=== PATIENT | male | born 1960 | race Caucasian/White ===

== ENCOUNTER 2022-11-22 23:21 | Emergency (ER) | payer MEDICARE ==
[~2022-11-22] VITALS: Ht 180.3 cm; Wt 93.0 kg
[~2022-11-22 23:21] MED LIST: CHLO25 PO; FLUO20 PO; LISHYD2025 PO; LORA.5 PO; OXYACE5T PO; [UNRECOGNIZED DRUG - REMARK]
[2022-11-23 00:49] LABS: Albumin, Blood 3.5 g/dL (3.4-5.0); Albumin/Globulin Ratio 0.7 (0.8-1.8); Bilirubin, Total 1.9 mg/dL (0.1-1.0); Bun/Creatinine Ratio 22.7 (12.0-20.0); Calcium, Blood 8.4 mg/dL (8.5-10.1); Creatinine, Blood 0.57 mg/dL (0.60-1.20); Potassium, Blood 4.6 mmol/L (3.5-5.5); Total Protein, Blood 8.5 g/dL (6.4-8.2)
[2022-11-23 01:16] LABS: BASOPHILS ABSOLUTE AUTO 0.02 K/mm3 (0.00-0.23); BASOPHILS PERCENT AUTO 0 % (0-2); EOSINOPHILS ABSOLUTE AUTO 0.01 K/mm3 (0.00-0.68); EOSINOPHILS PERCENT AUTO 0 % (0-6); Hematocrit 42.2 % (37.0-53.0); IMMATURE GRAN ABSOLUTE AUTO 0.07 K/mm3 (0.00-0.10); IMMATURE GRAN PERCENT AUTO 0 % (0-1); LYMPHOCYTES ABSOLUTE AUTO 2.49 K/mm3 (0.84-5.20); LYMPHOCYTES PERCENT AUTO 16 % (21-46); MONOCYTES ABSOLUTE AUTO 1.49 K/mm3 (0.16-1.47); MONOCYTES PERCENT AUTO 10 % (4-13); Mean Corpuscular HGB 32.4 pg (26.0-34.0); Mean Corpuscular HGB Conc 35.5 g/dL (31.5-36.5); Mean Corpuscular Volume 91 fL (80-100); Mean Platelet Volume 9.5 fL (9.1-12.4); NEUTROPHILS ABSOLUTE AUTO 11.67 K/mm3 (1.96-9.15); NEUTROPHILS PERCENT AUTO 74 % (41-73); Platelet Count 310 K/mm3 (150-400); RDW Coefficient Variation 12.6 % (11.7-14.2); RDW Standard Deviation 41.8 fL (35.1-46.3); Red Blood Cell Count 4.63 M/mm3 (4.30-5.90); White Blood Cell Count 15.75 K/mm3 (4.00-11.30)
== END 2022-11-23 03:59 | disposition home or self-care (01) ==
LOC: ER 23:21
PROVIDERS: Student in an Organized Health Care Education/Training Program
DX: J32.3 Chronic sphenoidal sinusitis (principal); Z79.899 Other long term (current) drug therapy; I10 Essential (primary) hypertension
CPT/HCPCS: 36415; 70450; 80053; 85025; 96374; 96375; 99284; A9270; J0780; J1200; J1885; J7030

== ENCOUNTER 2023-04-29 13:31 | Emergency (ER) | payer MEDICARE ==
[~2023-04-29] VITALS: Ht 177.8 cm; Wt 83.9 kg
[~2023-04-29 13:31] MED LIST changes: +ATOR40TA PO; +CEPH500 PO; +CLOP75 PO; +PERISHIELD OIN452 GM TOP; +Prinivil10 MG PO
[2023-04-29 13:35] VITALS: BP 141/98
[2023-04-29] MEDS ORDERED: LISI5 PO (16:07)
== END 2023-04-29 16:18 | disposition home or self-care (01) ==
LOC: ER 13:31
DX: S40.022A Contusion of left upper arm, initial encounter (principal); W19.XXXA Unspecified fall, initial encounter; I10 Essential (primary) hypertension; I69.954 Hemiplegia and hemiparesis following unspecified cerebrovascular disease affecting left non-dominant side
CPT/HCPCS: 73090; 99283-25

== ENCOUNTER 2023-05-15 14:04 | Inpatient (IN) | payer MEDICARE ==
[~2023-05-15] VITALS: Ht 175.3 cm; Wt 84.6 kg
[~2023-05-15 14:04] MED LIST changes: +LISI5 PO
[2023-05-15 15:45] LABS: BASOPHILS ABSOLUTE AUTO 0.01 K/mm3 (0.00-0.23); BASOPHILS PERCENT AUTO 0 % (0-2); EOSINOPHILS ABSOLUTE AUTO 0.08 K/mm3 (0.00-0.68); EOSINOPHILS PERCENT AUTO 1 % (0-6); Hematocrit 44.8 % (37.0-53.0); Hemoglobin 15.2 g/dL (13.5-17.5); IMMATURE GRAN ABSOLUTE AUTO 0.01 K/mm3 (0.00-0.10); IMMATURE GRAN PERCENT AUTO 0 % (0-1); LYMPHOCYTES ABSOLUTE AUTO 1.69 K/mm3 (0.84-5.20); LYMPHOCYTES PERCENT AUTO 26 % (21-46); MONOCYTES PERCENT AUTO 12 % (4-13); Mean Corpuscular HGB 35.3 pg (26.0-34.0); Mean Corpuscular HGB Conc 33.9 g/dL (31.5-36.5); Mean Corpuscular Volume 104 fL (80-100); Mean Platelet Volume 10.8 fL (9.1-12.4); NEUTROPHILS ABSOLUTE AUTO 3.84 K/mm3 (1.96-9.15); NEUTROPHILS PERCENT AUTO 60 % (41-73); Platelet Count 255 K/mm3 (150-400); RDW Coefficient Variation 11.7 % (11.7-14.2); RDW Standard Deviation 45.7 fL (35.1-46.3); Red Blood Cell Count 4.31 M/mm3 (4.30-5.90); White Blood Cell Count 6.43 K/mm3 (4.00-11.30)
[2023-05-15 15:57] LABS: Albumin, Blood 3.2 g/dL (3.4-5.0); Albumin/Globulin Ratio 0.7 (0.8-1.8); Bilirubin, Total 0.5 mg/dL (0.1-1.0); Bun/Creatinine Ratio 11.4 (12.0-20.0); Calcium, Blood 8.9 mg/dL (8.5-10.1); Creatinine, Blood 0.7 mg/dL (0.60-1.20); Globulin, Blood 4.3 g/dL (2.2-4.0); Potassium, Blood 2.9 mmol/L (3.5-5.5); Total Protein, Blood 7.5 g/dL (6.4-8.2)
[2023-05-16] VITALS (12 sets, daily range): BP systolic 146–171; BP diastolic 104–119
--- NOTE | 2023-05-16 05:15 | NUR ---
ARRIVAL TO PCU 10 / SHIFT SUMMARY PT ARRIVED TO PCU AT APPROXIMATELY 0350. PT SLID SELF OVER FROM ER GURNEY TO HOSPITAL BED. PT A&Ox4, CALLS AND COMMUNICATES NEEDS APPROPRIATELY. AT TIMES PT GETS FRSUTRATED WITH STAFF AND YELLS OUT BUT IS EASILY COMFORTED. BP STABLE, SINUS 70's, DENIES CP/PRESSURE. SpO2> 92% RA, DENIES SOB. INCONTINENT/CONTINENT OF URINE, ATTENDS IN PLACE, URINAL AT BEDSIDE. ORIENTED TO CALL LIGHT/UNIT. SEIZURE PADS ON SIDERAILS. CIWA SCORE OF 6 UPON ARRIVAL. BED IN LOWEST POSITION, BED ALARM ON. WILL REPORT TO ONCOMING RN.
[2023-05-16 09:54] LABS: Albumin, Blood 3.2 g/dL (3.4-5.0); Albumin/Globulin Ratio 0.7 (0.8-1.8); Bilirubin, Total 0.6 mg/dL (0.1-1.0); Bun/Creatinine Ratio 5.3 (12.0-20.0); Calcium, Blood 8.7 mg/dL (8.5-10.1); Creatinine, Blood 0.57 mg/dL (0.60-1.20); Globulin, Blood 4.9 g/dL (2.2-4.0); Potassium, Blood 3.8 mmol/L (3.5-5.5); Total Protein, Blood 8.1 g/dL (6.4-8.2)
--- NOTE | 2023-05-16 10:20 | NUR ---
Pt had been on the bedside commode and PCT Calmar said that the pt was an easy stand and transfer [place] [facility] had been left on the BSC with the call light in his shirt pocket, with intructions to call before he got up. A loud noise was heard just out side the room, and the patient was found sitting on the floor, next to the closed bathroom door, with his legs underneath him. He denies any pain. He was alert, oriented to person, place, following directions and was in his normal conversation level, per PCT. Gait belt was then put on and the pt was assisted to stand up and sit on the bedside commode. The bed was then rolled closer to the BS and pt was able to stand and pivot to the bed. He was able to stand independently to have the PCT put on a pair of pull ups. He then sat on the side of the bed and vital signs were taken. Speech therapist arrived to work with the patient. Pt again denies any pain. Pt then asked for something for a headache, and pointed to the hairline on the top of his forehead when asked where his pain was. Scalp noted to be intact, without redness, bruising, bleeding nor swelling. Pt states he has had this headache "for a while" but then told me that it started today. Clinical coordinator, primary RN and the nursing supervisor filling and packing were notified. Primary RN Guera will call and notify the provider.
--- NOTE | 2023-05-16 10:41 | NUR ---
CARE ASSUMPTION This RN assumed care at 0700. blood pressure hypertensive, spo2 >95% on ra, tele sinus tach at 114. patient is alert and oriented x4. ciwa 8, this am. perrla. patient reports no pain, chest pain/pressure, or shortness of breath. patient over stimulates ability. bed alarm is on while patinet is in bed. see shift assessment for further detials. patient had an unwitnessed fall from bedside comode, this rn was informed of it from suly diana. see her note. this rn called md myers to inform her of the fall and that patient is asking how he can be discharged and wants his "freedom and mobility back". this rn explained why the patient is here and the importance of having someone here to assist him. plan of care is up to date. call light within reach and bed alarm is on.
[2023-05-16 16:28] LABS: Magnesium, Blood 1.9 mg/dL (1.6-2.4)
--- NOTE | 2023-05-16 17:44 | NUR ---
shift summary patient ciwa 8-13. patient is drowsy, and arousable to painful stimuli. patient had multiple episodes of emesis this afternoon. patient received zofran iv. md Vásquez aware and into see patient this afternoon. patient blood pressure has been hypertensive, medications per emar. plan of care is up to date. no acute changes. see pervious notes. call light within reach and bed in lowest position with alarm on and tab alarm on.
--- NOTE | 2023-05-16 19:30 | NUR ---
ASSESSMENT/ASSUMED CARE PT SLEEPING, OPENS EYES TO VERBAL STIMULI. FOLLOWING SOME INSTRUCTIONS. BACK TO SLEEP QUICKLY WHEN UNDISTURBED. LUNGS CLEAR ON ROOMAIR. RESP EVEN AND NONLABORED. HEART RATE REGULAR SINUS RHYTHM IN THE 90'S. BP ELEVATED WITH MED WITH HYDRALAZINE 10 MG IV. NO EDEMA. BT+ ABD SOFT AND NONTENDER. PT HAS HAD NAUSEA AND VOMITING TODAY, NONE AT THIS TIME. IV LEFT AC WITH 1/2 NS AT 100 ML/HR. PT MOVING SELF IN BED. BED AND TAB ALARM ON. CIWA 7. 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
--- NOTE | 2023-05-16 20:10 | NUR ---
PT HAVING NAUSEA MED WITH ZOFRAN.
--- NOTE | 2023-05-16 21:10 | NUR ---
CIWA UP TO 18. PT HAVING NAUSEA AND VOMITING. MED WITH ATIVAN 2 MG
[2023-05-17] VITALS (8 sets, daily range): BP systolic 113–162; BP diastolic 80–121
[2023-05-17 04:00] LABS: BASOPHILS ABSOLUTE AUTO 0.01 K/mm3 (0.00-0.23); BASOPHILS PERCENT AUTO 0 % (0-2); EOSINOPHILS ABSOLUTE AUTO 0.03 K/mm3 (0.00-0.68); EOSINOPHILS PERCENT AUTO 0 % (0-6); Hematocrit 42.4 % (37.0-53.0); Hemoglobin 14.4 g/dL (13.5-17.5); IMMATURE GRAN ABSOLUTE AUTO 0.01 K/mm3 (0.00-0.10); IMMATURE GRAN PERCENT AUTO 0 % (0-1); LYMPHOCYTES ABSOLUTE AUTO 1.46 K/mm3 (0.84-5.20); LYMPHOCYTES PERCENT AUTO 21 % (21-46); MONOCYTES ABSOLUTE AUTO 0.59 K/mm3 (0.16-1.47); MONOCYTES PERCENT AUTO 9 % (4-13); Mean Corpuscular HGB 34.5 pg (26.0-34.0); Mean Corpuscular Volume 102 fL (80-100); Mean Platelet Volume 10.3 fL (9.1-12.4); NEUTROPHILS ABSOLUTE AUTO 4.72 K/mm3 (1.96-9.15); NEUTROPHILS PERCENT AUTO 69 % (41-73); Platelet Count 248 K/mm3 (150-400); RDW Coefficient Variation 11.8 % (11.7-14.2); RDW Standard Deviation 44.4 fL (35.1-46.3); Red Blood Cell Count 4.17 M/mm3 (4.30-5.90); White Blood Cell Count 6.82 K/mm3 (4.00-11.30)
[2023-05-17 04:22] LABS: Magnesium, Blood 1.6 mg/dL (1.6-2.4)
[2023-05-17 04:23] LABS: Anion Gap 7 mmol/L (6-16); Blood Urea Nitrogen 4 mg/dL (8-24); Bun/Creatinine Ratio 7.1 (12.0-20.0); CO2, Blood 24 mmol/L (21-32); Calcium, Blood 8.4 mg/dL (8.5-10.1); Chloride, Blood 110 mmol/L (98-108); Creatinine, Blood 0.56 mg/dL (0.60-1.20); Glomerular Filtration Rate 113 (60-); Glucose, Blood 100 mg/dL (70-99); Phosphorus, Blood 2.4 mg/dL (2.5-4.9); Potassium, Blood 3.4 mmol/L (3.5-5.5); Sodium, Blood 141 mmol/L (136-145)
--- NOTE | 2023-05-17 05:55 | NUR ---
SHIFT SUMMARY PT SLEPT MOST OF NIGHT. CIWA 8-18, MED WITH LIBRIUM AND ATIVAN PRN. HTN, PT GIVEN HYDRALAZINE ONCE DURING THE NIGHT WITH GOOD RESULTS. BEDALARM ON. FREQUENT REORIENTATION. REPORT TO ON COMING NURSE
--- NOTE | 2023-05-17 07:00 | NUR ---
ASSUMPTION OF CARE PT IS AWAKE, PARTICIPATES IN CONVERSATION. WHEN ASKING ORIENTATION QUESTIONS HE IMMEDIATELY RESPONDS WITH "April,, DARLIN IS PRESIDENT". CIWA 11. PT STS HE WAS LIVING AT [facility] BUT GOT "EVICTED" AND PEOPLE WERE "STEALING" FROM HIM. STS MOTHER LIVES IN [place] AND SON LIVES IN [place]. PT ON CONTINUOUS TELEMETRY. BED IN LOW POSITION, CALL LIGHT WITHIN REACH. BED ALARM AND TAB ALARM ON.
--- NOTE | 2023-05-17 08:03 | NUR ---
UPDATE PT ATTEMPTING TO GET OUT OF BED X4. BED AND TAB ALARMS ALERT STAFF. PT BECOMING MORE ANXIOUS AND AGITATED DESPITE CONVERSATION AND REORIENTATION. HE WANTS HIS CELL PHONE CHARGED AND STS "THE PLUG INS ARE ON THE FLOOR". PT REORIENTED THAT HE IS IN THE HOSPITAL. PT REDIRECTABLE BUT NEEDS CLOSE MONITORING. PT ASSISTED TO RECLINER. CIWA 15, MEDICATED PER EMAR. 1:[address] NOW [address] PL[address].
--- NOTE | 2023-05-17 14:09 | NUR ---
UPDATE CIWA SCORES 11-17. PT MOOD IS LABILE. HE BECOMES ANXIOUS AND EXPRESSES WANTING TO LEAVE. HE CURSES AT STAFF AND REQUESTS HIS MOBILITY SCOOTER SO HE CAN LEAVE THE HOSPITAL. OTHER TIMES HE EXPRESSES GRATITUDE FOR THE CARE HE HAS BEEN GIVEN. PT REORIENTED THROUGHOUT THE SHIFT. HE HAS IMPULSIVE BEHAVIOR INCLUDING ATTEMPTING TO STAND INDEPENDENTLY. PT HAS AN UNSTEADY GAIT DUE TO L SIDE DEFICITS FROM PREVIOUS CVA. PT INTERMITTENTLY REDIRECTABLE BUT REQUIRES CLINICAL SITTER DUE TO IMPULSIVE BEHAVIOR.
--- NOTE | 2023-05-17 17:02 | NUR ---
SHERMAN/DEBIT CARD PT ASKING ABOUT MONEY AND DEBIT CARD. PT HAS 2 TWENTY DOLLAR BILLS AND 4 ONE DOLLAR BILLS AND A DEBIT CARD. PT WANTS TO KEEP IT IN HIS POSESSION. PLACED BACK IN PT BELONGINGS BAG.
--- NOTE | 2023-05-17 17:42 | NUR ---
SHIFT SUMMARY PT ANSWERS BASIC ORIENTATION QUESTIONS CORRECTLY BUT HAS EPISODES OF CONFUSION. MOOD IS LABILE. PT REQUIRES FREQUENT REORIENTATION AND BEHAVIOR IS IMPULSIVE. CIWA SCORES 11-17 AND MEDICATED PER EMAR. PT HAS HAD MULTIPLE INCONTINENT VOIDS. SOFT DIET PER SPEECH THERAPY. TOLERATING MEALS AND FLUIDS WELL. 1:[address]
[2023-05-18] VITALS (14 sets, daily range): BP systolic 105–168; BP diastolic 76–107
[2023-05-18 03:52] LABS: Bun/Creatinine Ratio 14.1 (12.0-20.0); Calcium, Blood 8.5 mg/dL (8.5-10.1); Creatinine, Blood 0.71 mg/dL (0.60-1.20); Magnesium, Blood 1.8 mg/dL (1.6-2.4); Potassium, Blood 3.7 mmol/L (3.5-5.5)
--- NOTE | 2023-05-18 06:29 | NUR ---
PATIENT INTERMITTENTLY CONFUSED. SOMETIMES FORGETS SITUATION, PLACE, AND TIME. OTHER TIMES APPEARS ORIENTED TO THESE THINGS. CIWA SCORES RANGING FROM 2-10. LABILE EMOTIONS, QUICK TO BECOME VERBALLY AGGRESSIVE AND THREATENING TO STAFF. SITTER AT BEDSIDE. SR WITH STABLE BP. ROOM AIR. TOLERATING DIET WITH NO N/V. CONDOM CATHETER IN PLACE D/T INCONTINENCE.
--- NOTE | 2023-05-18 07:12 | NUR ---
ASSUME CARE: I have assumed care of this patient.
--- NOTE | 2023-05-18 18:30 | NUR ---
SHIFT SUMMARY: Pt received one dose of librium and 2mg of ativan for his withdrawal symptoms today. He requested pain medications for his chronic left sided pain for which he was given 5mg oxycodone with good effect. Orientation improving throughout the day. Pt cooperative, though he is paranoid with labile affect. Condom cath in place with one unmeasured void today. Good PO intake. Pt repositions self in bed with minimal assistance. technical services rep consult placed as pt is requesting assistance with finding housing.
--- NOTE | 2023-05-18 23:42 | NUR ---
RECEIVED PT FROM ICU, VERY ANXIOUS C/O CONFUSION OTHERWISE VERY PLEASENT. SITTER TO WATCH PT. ATIVAN AND LIBRIUM GIVEN PER REQUEST OF PT AND BECAUSE CWA IS 9-10. LEFT SIDE FLACID BED ALARM ON.
--- NOTE | 2023-05-19 05:40 | NUR ---
SHIFT SUMMARY REPORT RECEIVED VERIFIED PT ANXIOUS SO I OFFERED MEDICATION, PT ACCEPTED AND WAS THANKFUL. PT SLEPT MOST OF THE NIGHT HAD SITTER AT BEDSIDE AND IT WAS DECIDED PT DIDNT NEED A SITTER AND HAS BEEN COOPERATIVE SO FAR. CONDOM CATH WAS APPLIED DUE TO PT DIFFICULTY USING BOTTLE WITH ONE HAND SINCE LEFT HAND IS FLACCID. PT MEDICATED FOR CIWA 8 AND PAIN TO LEFT ARM.
[2023-05-19 06:29] VITALS: BP 165/113
--- NOTE | 2023-05-19 06:39 | NUR ---
PT BP RUNS HIGH HX OF HTN, PRN HYDRALAZINE GIVEN.
[2023-05-19 08:06] VITALS: BP 117/84
[2023-05-19 16:10] VITALS: BP 147/96
--- NOTE | 2023-05-19 16:34 | NUR ---
SHIFT SUMMARY: PATIENT A&OX3. EPISODE OF CONFUSION T/O SHIFT BUT REDIRECTABLE. ANXIOUS AT TIMES. CIWA SCORE OF 7 THIS SHIFT. RECEIVED PRN LIBRIUM AND ATIVAN PER EMAR. L SIDED FLACCID. DENIES CP/PRESSURE, SOB, N/V. REPORTS HEADACHE 7-04/25, MEDICATED c PRN PAIN MEDS PER EMAR c GOOD EFFECT. PATIENT IS INCONTINENCE OF BLADDER, BRYANT CARE AND ATTENDS CHANGED T/O SHIFT. PATIENT IS EATING AND DRINKING WELL WITHOUT ANY ISSUES OR PROBLEMS SWALLOWING. BP HAS IMPROVED. RECEIVED IV THIAMINE AND FOLIC ACID. POWERGLIDE TO KAYY AND PIV TO LAC SALINE LOCKED. BED ALARM ON FOR SAFETY. CALL LIGHT IN REACH.
[2023-05-19 20:10] VITALS: BP 159/99
[2023-05-20 04:57] VITALS: BP 159/112
--- NOTE | 2023-05-20 05:54 | NUR ---
ATTEMPTED TO GET OOB TWICE BUT REDIRECTABLE, HAS HAD UNSTEADY GAIT AND RECENT FALLS. CONTINENT/INCONTINENT OF BLADDER, NO BM THIS SHIFT. LOW CIWA SCORES BETWEEN 7-8. IMPROVING ORIENTATION BUT STILL HAS MOMENTS OF CONFUSION. HYPERTENSIVE BUT OTHERWISE VSS ON RA. FIRE SAFETY REVIEWED.
[2023-05-20 07:21] VITALS: BP 160/111
[2023-05-20 15:56] VITALS: BP 195/138
--- NOTE | 2023-05-20 16:17 | NUR ---
SHIFT SUMMARY PATIENT IS ALERT AND ORIENTED X3. PATIENT HAS HAD NO ACUTE EVENTS THIS SHIFT. PATIENT HAS HAD ANXIETY THIS SHIFT X2 AND MEDICATED PER EMAR. PATIENT HAS HAD NO COMPLAINTS OF PAIN, NAUSEA, SOB OR VOMITTING THIS SHIFT. PATIENT IS A 2 PERSON ASSIST DUE TO LEFT SIDED WEAKNESS. PATIENT HAS NEEDED ASSISTENCE WITH URINAL THIS SHIFT. PATIENTS BP HAS BEEN ELEVATED DUE TO INCREASED ANXIETY AND AGITATION WITH BEING IN HOSPITAL. BED IN LOCKED AND LOWEST POSITION. CALL LIGHT IN PLACE. WILL MONITOR UNTIL SHIFT CHANGE.
[2023-05-20 19:14] VITALS: BP 153/100
[2023-05-21 04:25] VITALS: BP 168/118
--- NOTE | 2023-05-21 06:31 | NUR ---
PT REPORTS HIGH ANXIETY AND REQUESTS ATIVAN MULTIPLE TIMES THROUGH SHIFT. PT IS INTERMITTENTLY CONFUSED (EXAMPLE: [place] RESPONDS WELL TO REDIRECTION. REPORTS CHRONIC LUE PAIN, STATES OXYCODONE 5 MG IS EFFECTIVE. VSS ON RA, TOLERATES PILLS WHOLE WITH WATER. PT REQUESTED CONDOM CATHETER, PER REPORT CONDOM CATHETER DOES NOT STAY IN PLACE, WILL CONTINUE TO ASSESS. DID NOT GET OOB, REQUIRES MIN ASSIST TO REPOSITION IN BED. FIRE SAFETY REVIEWED.
[2023-05-21 06:49] LABS: Bun/Creatinine Ratio 10.3 (12.0-20.0); Calcium, Blood 8.4 mg/dL (8.5-10.1); Creatinine, Blood 0.78 mg/dL (0.60-1.20); Magnesium, Blood 1.9 mg/dL (1.6-2.4); Potassium, Blood 3.6 mmol/L (3.5-5.5)
[2023-05-21 07:54] VITALS: BP 156/122
--- NOTE | 2023-05-21 10:23 | NUR ---
ASSUMED CARE OF PT, DR RODRIGUEZ AT BEDSIDE. PT ALERT AND COMPLAINS OF HEADACHE. A&OX3, CIWA SCORE OF 7. PT STATES ANXIETY, NO NAUSEA, A HEADACHE, MINOR TREMORS FELT, NO VISUAL OR AUDITORY HALLUCINATIONS, MINOR ITCHINESS. PT RESTING IN BED. BED LOCKED AND IN LOW POSITION, BED ALARM ENABLED, AND CALL LIGHT WITHIN REACH.
--- NOTE | 2023-05-21 14:05 | NUR ---
PT RESTING IN BED SLEEPING. WILL ASSESS CIWA ONCE PT WAKES UP.
[2023-05-21 15:26] VITALS: BP 142/88
--- NOTE | 2023-05-21 17:56 | NUR ---
PT STATES "I JUST WANT TO ". FURTHER INVESTIGATED TO ASSESS FOR SUICIDE RISK, NO PLANS OF SELF HARM. PT STATES "I DO NOT WANT TO HURT MYSELF OR ANYONE ELSE." THERAPEUTIC COMMUNICATION UTILIZED, PT VERBALIZES LESS ANXIETY. WILL CONTINUE TO MONITOR.
--- NOTE | 2023-05-21 17:59 | NUR ---
SHIFT SUMMARY PT A&OX3, UNAWARE OF CURRENT DATE BUT CAN RECALL CURRENT PRESIDENT. NO ACUTE EVENTS DURING THE SHIFT. PT STATED "I JUST WANT TO " DURING A CONVERSATION WITH ME AND GIORGI NEVAREZ. SUICIDE RISK ASSESSED, NO RISK FOUND. PT MOOD RETURNED TO CALM LATER ON DURING THE SHIFT. PT ABLE TO USE CALL LIGHT APPROPRIATELY. PT LEFT IN A POSITION OF SAFETY WITH BED LOCKED AND LOW, YELLOW GOWN IN PLACE, BED ALARM SET. BP BEGINNING TO TREND DOWN AFTER LISINOPRIL ADMINISTRATION.
[2023-05-21 19:24] VITALS: BP 104/76
[2023-05-22 04:43] VITALS: BP 125/89
--- NOTE | 2023-05-22 04:59 | NUR ---
SHIFT SUMMARY PT ALERT AND ORIENTED TO PERSON, PLACE AND SELF. PT IS ABLE TO MAKE NEEDS KNOWN AND IS COOPERATIVE WITH CARE. RESPIRATIONS HAVE BEEN EQUAL AND UNLABORED ON RA T/O SHIFT AND PERIODS OF REST. PT DENIES CHEST PAIN OR PRESSURE. PT HAS BEEN ANXIOUS WITH AGITATION THIS SHIFT; MEDICATED PER EMAR. PT HAS LEFT SIDED DEFICITS; YELLOW GOWN IS ON, BED IS IN LOWEST POSITION AND LOCKED, CALL LIGHT WITHIN REACH. NO S/S OF DISTRESS AT THIS TIME. NO ACUTE CHANGES THIS SHIFT.
[2023-05-22 07:39] VITALS: BP 147/100
--- NOTE | 2023-05-22 07:46 | NUR ---
ASSUMED CARE OF PT. PT AGITATED AND RESTLESS, TRYING TO LEAVE BED. REORIENTED PT. PT RAISED MIDDLE FINGER TOWARDS TECHNICAL SALES CONSULTANT, EDUCATED PT ON EXPECTED TREATMENT OF STAFF. USED THERAPEUTIC COMMUNICATION AND BREATHING EXERCISES TO CALM PT. PT STILL ANXIOUS, TEARY, AND RESTLESS WHEN ASSESSING CIWA SCORE. LIBRIUM INDICATED PER SCORE.
--- NOTE | 2023-05-22 14:00 | NUR ---
SPOKE TO PHYSICIAN REGARDING D/C PLAN, BEGINNING D/C PT IS SHOWING NO SIGNS OF INCREASED CONFUSION FROM BASELINE.
--- NOTE | 2023-05-22 14:11 | NUR ---
CALLED NEXT OF KIN, NO ANSWER RECEIVED. WILL MAKE ANOTHER ATTEMPT TO CONTACT FOR RIDE.
[2023-05-22 15:49] VITALS: BP 108/87
--- NOTE | 2023-05-22 18:24 | NUR ---
SHIFT SUMMARY PT A&OX3 (PERSON, PLACE, SITUATION). NO ACUTE EVENTS DURING SHIFT. PHYSICAL THERAPY IN TO SEE PT REGARDING ABILITY TO D/C. PT'S MOTHER CONTACTED REGARDING BASELINE AMBULATION AT HOME. PT'S B/P TRENDING DOWN. CIWA SCORES IMPROVING, PT EXPERIENCING ANXIETY AND AGITATION, NO OTHER SYMPTOMS REPORTED/OBSERVED DURING ASSESSMENTS. PT FORGETS LIMITATIONS REGARDING AMBULATION, ABLE TO BE REORIENTED. PT REMAINED FREE OF FALLS DURING MY SHIFT. PT CURRENTLY STABLE WITH NO SIGNS OF DISTRESS. BED ALARM ENABLED, BED LOCKED AND IN LOW POSITION.
[2023-05-22 21:05] VITALS: BP 102/69
[2023-05-23 02:54] VITALS: BP 136/99
--- NOTE | 2023-05-23 04:28 | NUR ---
SHIFT SUMMARY PT IS ALERT AND ORIENTED TO PERSON, PLACE, AND SITUATION. PT IS OF PLEASANT AFFECT, AND ABLE TO MAKE NEEDS KNOWN. PT REPORTED BEING EXCITED FOR PHYSICAL THERAPY ON 05/23/23. 2 PERSON ASSIST TO BEDSIDE COMMODE, GAIT IS WEAK; LEFT SIDE DEFICITS (HX CVA). PT RESTING MOST OF SHIFT WITH EQUAL, UNLABORED RESPIRATIONS. PT DENIES CHEST PAIN OR PRESSURE. NO ACUTE CHANGES NOTED THIS SHIFT. BED IS LOCKED AND IN THE LOWEST POSITION, CALL LIGHT WITHIN REACH. NO S/S OF DISTRESS AT THIS TIME.
--- NOTE | 2023-05-23 07:28 | NUR ---
ASSUMED CARE OF PT. PT VERBALIZING WANTING TO GET IN CHAIR, ASSISTED WITH 2P W/ GAITBELT. PT REFUSED THE USE OF A FWW. PT VERBALIZED "YOU GUYS ARE THE ONES HOLDING ME BACK." AND REQUESTS TO AMBULATE INDEPENDENTLY. EDUCATED REGARDING FALL SAFETY AND PT AMBULATION ORDERS. PT EXPERIENCING MILD ANXIETY AND AGITATION STATING "EVERYONE IS TELLING ME WHAT I CAN AND CAN'T DO." THERAPEUTIC COMMUNICATION UTILIZED.
[2023-05-23 07:30] VITALS: BP 147/104
--- NOTE | 2023-05-23 07:41 | NUR ---
PT DENIES ANY PAIN WHEN ASSESSED. PT REQUESTS MEDICATION FOR ANXIETY WANTING "THE KIND THAT GOES INTO MY IV." EDUCATED REGARDING MEDICATIONS AVAILABLE TO PT. CIWA SCORE OF 3, NO INDICATION FOR THE ADMINISTRATION OF LIBRIUM AT THIS TIME.
--- NOTE | 2023-05-23 09:35 | NUR ---
PHYSICIAN AT BEDSIDE, DISCUSSED ANXIETY AND D/C PLANS.
--- NOTE | 2023-05-23 11:49 | NUR ---
CARE MANAGEMENT IN TO SEE PT, PROVIDED EDUCATION AND RESOURCES AVAILABLE AFTER D/C TO PT.
[2023-05-23] MEDS ORDERED: LISI20 PO (14:05)
[2023-05-23] MEDS ORDERED: MULVITA PO (14:06)
[2023-05-23] MEDS ORDERED: CHLO10 PO (14:06)
--- NOTE | 2023-05-23 14:41 | NUR ---
SHIFT SUMMARY PT D/C AT 1440. ALL PERSONAL ITEMS OUT OF ROOM. PT LEFT VIA MOTORIZED SCOOTER ACCOMPANIED BY FAMILY MEMBER. D/C INSTRUCTIONS WITH PT. PT MEDICALLY STABLE AT TIME OF D/C. PT USED HEMIWALKER TO AMBULATE TO SCOOTER, ABLE TO STAND HIMSELF UP FROM CHAIR. PT OVERESTIMATES MOBILITY ABILITIES, HESITANT TO UTILIZE MOBILITY AIDS WHILE IN HOSPITAL.
== END 2023-05-23 14:38 | disposition home or self-care (01) | DRG 897 ==
LOC: ER 14:04 → PCU 05-16 03:08 → MEDS 05-16 03:08 → PCU 05-16 03:43 → ICUE 05-17 19:12 → MEDS 05-18 21:23 → ENPENDDIS 05-22 16:35 → MEDS 05-23 14:38
PROVIDERS: Internal Medicine; Student in an Organized Health Care Education/Training Program; ADMIT Internal Medicine
PROC: HZ2ZZZZ Detoxification Services for Substance Abuse Treatment (ICD-10-PCS; principal; 2023-05-16)
DX: F10.229 Alcohol dependence with intoxication, unspecified (principal); G93.40 Encephalopathy, unspecified; E87.0 Hyperosmolality and hypernatremia; I69.354 Hemiplegia and hemiparesis following cerebral infarction affecting left non-dominant side; F10.239 Alcohol dependence with withdrawal, unspecified; E87.6 Hypokalemia; I10 Essential (primary) hypertension; R56.9 Unspecified convulsions; F32.A Depression, unspecified; R74.8 Abnormal levels of other serum enzymes; B19.20 Unspecified viral hepatitis C without hepatic coma; F41.9 Anxiety disorder, unspecified; R74.01 Elevation of levels of liver transaminase levels; D75.89 Other specified diseases of blood and blood-forming organs; K74.60 Unspecified cirrhosis of liver; Y90.8 Blood alcohol level of 240 mg/100 ml or more; Z79.2 Long term (current) use of antibiotics; Z79.899 Other long term (current) drug therapy; Z98.890 Other specified postprocedural states; Z87.81 Personal history of (healed) traumatic fracture; Z59.00 Homelessness unspecified; Z99.3 Dependence on wheelchair; Z79.02 Long term (current) use of antithrombotics/antiplatelets
CPT/HCPCS: 36415; 70450; 80048; 80053; 80069; 82607; 82746; 82947; 83735; 84484; 85025; 92526; 92610; 93005; 93010; 96361; 96365; 96366; 97110; 97116; 97162; 97530; 99285-25; A9270; C1751; G0480; J0360; J1650; J2060; J2405; J3411; J3480; J7030; J7050

== ENCOUNTER 2023-05-26 17:46 | Inpatient (IN) | payer MEDICARE ==
[~2023-05-26] VITALS: Ht 172.7 cm; Wt 85.5 kg
[~2023-05-26 17:46] MED LIST changes: +CHLO10 PO; +LISI20 PO; +MULVITA PO
[2023-05-26 20:06] LABS: BASOPHILS ABSOLUTE AUTO 0.02 K/mm3 (0.00-0.23); BASOPHILS PERCENT AUTO 0 % (0-2); EOSINOPHILS ABSOLUTE AUTO 0.16 K/mm3 (0.00-0.68); EOSINOPHILS PERCENT AUTO 3 % (0-6); Hematocrit 41.4 % (37.0-53.0); Hemoglobin 14.6 g/dL (13.5-17.5); IMMATURE GRAN ABSOLUTE AUTO 0.05 K/mm3 (0.00-0.10); IMMATURE GRAN PERCENT AUTO 1 % (0-1); LYMPHOCYTES PERCENT AUTO 31 % (21-46); MONOCYTES ABSOLUTE AUTO 0.85 K/mm3 (0.16-1.47); MONOCYTES PERCENT AUTO 15 % (4-13); Mean Corpuscular HGB 34.6 pg (26.0-34.0); Mean Corpuscular HGB Conc 35.3 g/dL (31.5-36.5); Mean Corpuscular Volume 98 fL (80-100); NEUTROPHILS ABSOLUTE AUTO 2.99 K/mm3 (1.96-9.15); NEUTROPHILS PERCENT AUTO 51 % (41-73); NRBC ABSOLUTE 0.02 K/mm3 (0.00-0.02); NRBC Auto 0.3 /100 WBC (0.0-0.2); RDW Coefficient Variation 11.9 % (11.7-14.2); RDW Standard Deviation 43.3 fL (35.1-46.3); Red Blood Cell Count 4.22 M/mm3 (4.30-5.90); White Blood Cell Count 5.87 K/mm3 (4.00-11.30)
[2023-05-26 20:08] LABS: Bun/Creatinine Ratio 7.3 (12.0-20.0); Calcium, Blood 8.6 mg/dL (8.5-10.1); Creatinine, Blood 0.55 mg/dL (0.60-1.20); Magnesium, Blood 1.7 mg/dL (1.6-2.4); Phosphorus, Blood 2.8 mg/dL (2.5-4.9); Potassium, Blood 4.2 mmol/L (3.5-5.5)
[2023-05-26 20:17] LABS: Mean Platelet Volume 11.4 fL (9.1-12.4); Platelet Count 215 K/mm3 (150-400)
[2023-05-27 01:03] LABS: Source, Urine Clean Catch
[2023-05-27 01:07] LABS: Bilirubin, Urine Neg (Neg); Blood, Urine 3+ (Neg); Glucose Qualitative, Urine Neg (Neg); Ketones, Urine Neg (Neg); Leukocyte Esterase, Urine 3+ (Neg); Nitrite, Urine Pos (Neg); Protein, Urine 2+ (Neg); Specific Gravity, Urine 1.025 (1.003-1.022); Urobilinogen, Urine 1+ (Normal)
[2023-05-27 01:28] LABS: Appearance, Urine Cloudy (Clear); Bacteria Many /hpf; Color, Urine Yellow (P-Yellow); Red Blood Cells, Urine 0-2 /hpf (0-2); Squamous Epithelial Cells Rare /hpf (Few); White Blood Cells, Urine TNTC /hpf (0-5)
[2023-05-27 02:38] VITALS: BP 124/96
--- NOTE | 2023-05-27 02:45 | NUR ---
ADMIT NOTE; PT ARRIVES FROM THE ED VIA GURNEY. THE PT WAS TRANSFERED FROM THE ED GURNEY TO THE HOSPITAL BED VIA SLIDER SHEET. THE PT IS AXO X3 AND BEDREST R/T T/O WEAKNESS AND A L SIDED DEFICIT FROM A PREVIOUS CVA. THE PT ENDORSES SOME L SHOULDER AND ARM PAIN UPON ADMIT BUT OTHERWISE DENIES ANY ACUTE NEEDS. THE PT IS ABLE TO REST INTO BED COMFORTABLY. THE BED IS IN THE LOWEST POSITION AND THE CALL LIGHT IS WITHIN REACH OF THE PTS STRONG ARM (R ARM). FIRE EDUCATION PROVIDED AND PT EDUCATED ON POSSIBE FIRE IGNITION SOURCES. THE PT DENIES HAVING ANY POSSIBLE IGNITION SOURCES IN POSSESSION AT THIS TIME.
--- NOTE | 2023-05-27 04:47 | NUR ---
SHIFT SUMMARY; NO ACUTE CHANGES SINCE ADMIT. THE PT IS AXO X3 AND BEDREST R/T TO WEAKNESS AND A L SIDED DEFICIT R/T A PREVIOUS CVA. THE PT REQUESTED TYLENOL ONCE FOR L ARM PAIN BUT HAS OTHERWISE DENIED ANY SOB, CHEST PAIN/PRESSURE OR N/V. CURRENTLY THE PT IS SLEEPING IN BED WITH THE BED IN THE LOWEST POSITION AND THE CALL LIGHT AT BEDSIDE. FIRE SAFETY MAINTAINED FOR THE DURATION OF THE SHIFT.
[2023-05-27 05:42] LABS: BASOPHILS ABSOLUTE AUTO 0.01 K/mm3 (0.00-0.23); BASOPHILS PERCENT AUTO 0 % (0-2); EOSINOPHILS ABSOLUTE AUTO 0.22 K/mm3 (0.00-0.68); EOSINOPHILS PERCENT AUTO 3 % (0-6); Hematocrit 35.9 % (37.0-53.0); Hemoglobin 12.2 g/dL (13.5-17.5); IMMATURE GRAN ABSOLUTE AUTO 0.03 K/mm3 (0.00-0.10); IMMATURE GRAN PERCENT AUTO 0 % (0-1); LYMPHOCYTES ABSOLUTE AUTO 1.72 K/mm3 (0.84-5.20); LYMPHOCYTES PERCENT AUTO 21 % (21-46); MONOCYTES ABSOLUTE AUTO 0.91 K/mm3 (0.16-1.47); MONOCYTES PERCENT AUTO 11 % (4-13); Mean Corpuscular HGB 34.4 pg (26.0-34.0); Mean Corpuscular Volume 101 fL (80-100); Mean Platelet Volume 10.8 fL (9.1-12.4); NEUTROPHILS ABSOLUTE AUTO 5.27 K/mm3 (1.96-9.15); NEUTROPHILS PERCENT AUTO 65 % (41-73); Platelet Count 227 K/mm3 (150-400); RDW Standard Deviation 45.3 fL (35.1-46.3); Red Blood Cell Count 3.55 M/mm3 (4.30-5.90); White Blood Cell Count 8.16 K/mm3 (4.00-11.30)
[2023-05-27 06:15] LABS: Albumin, Blood 2.7 g/dL (3.4-5.0); Albumin/Globulin Ratio 0.8 (0.8-1.8); Bun/Creatinine Ratio 9.1 (12.0-20.0); Calcium, Blood 8.3 mg/dL (8.5-10.1); Creatinine, Blood 0.66 mg/dL (0.60-1.20); Globulin, Blood 3.6 g/dL (2.2-4.0); Potassium, Blood 3.8 mmol/L (3.5-5.5); Total Protein, Blood 6.3 g/dL (6.4-8.2)
[2023-05-27 07:25] VITALS: BP 144/94
--- NOTE | 2023-05-27 12:34 | NUR ---
911 PT CALLED 911 TO HELP HIM WITH PLACMENT AND LIVING ARRANGEMENTS. HE WAS GIVEN THE NON EMERGENT LINE AND TALKED WITH DISPATCH. [facility] WAS [facility] TO [facility]. PT CALLED HIS MOTHER. SHE WILL BE BRINGING HIM CLOTHES. HE DOES NOT KNOW WHERE IN [place] HIS SCOOTER MIGHT BE. CONTINUE POC.
--- NOTE | 2023-05-27 12:35 | NUR ---
JOSE HENDRICKS DENIES THAT PT RESIDES THERE. THE DENY HAVINGHIS ELECTRIC SCOOTER. PT DOES NOT KNOW WHERE HIS SCOOTER IS EITHER. CONTINUE POC.
[2023-05-27 19:12] VITALS: BP 121/78
[2023-05-28 02:52] VITALS: BP 140/94
--- NOTE | 2023-05-28 05:05 | NUR ---
SHIFT SUMMARY; NO ACUTE CHANGES OVERNIGHT. THE PT IS AXO X3. THE PT IS HAPPY TO BE DISCHARGING TODAY BUT UPSET THAT IT IS TO [facility]. THE PT HAS BEEN A 1 ASSIST W/ THE HEMIWALKER TO USE THE RESTROOM. THE PT TURNED OFF HIS OWN BED ALARM THIS AM, EDUCATED THE PT AND TOLD HIM THAT WE HAD THAT ON HIS BED FOR HIS SAFETY SO THAT WE KNEW WHEN HE WAS GETTING UP AND COULD COME HELP SO THAT HE DOESNT FALL. PT AGREEABLE TO THIS, SAYS THAT HE WONT TURN HIS OWN BED ALARM OFF AGAIN. THE PT DENIES ANY SOB, CHEST PAIN/PRESSURE, N/V OR PAIN. CURRENTLY THE PT IS LAYING IN BED WITH THE BED IN THE LOWEST POSITION AND THE CALL LIGHT AT BEDSIDE. FIRE SAFETY MAINTAINED T/O THE SHIFT.
[2023-05-28 07:12] VITALS: BP 156/108
[2023-05-28] MEDS ORDERED: CEPH500 PO (12:10)
--- NOTE | 2023-05-28 13:24 | NUR ---
DISCHARGE PT MOTHER IS NOT COMING TO GET HIM. [employer] PHONE NUMBER PROVIDED TO PT. [facility] W[facility]ER DELIVERED. CONTINUE POC.
--- NOTE | 2023-05-28 13:38 | NUR ---
DISCHARGE HOME PT DISCHARGED. HE ARRANGED A TAXI TO [facility]. POWER GLIDE REMOVED WITH CANNULA INTACT. PRESSURE DRESSING APPLIED. CONTINUE POC.
== END 2023-05-28 13:39 | disposition home or self-care (01) | DRG 603 ==
LOC: ER 17:46 → MEDS 17:47
PROVIDERS: Emergency Medicine; Family Medicine; ADMIT Internal Medicine
PROC: HZ2ZZZZ Detoxification Services for Substance Abuse Treatment (ICD-10-PCS; principal; 2023-05-27)
DX: L03.116 Cellulitis of left lower limb (principal); I69.354 Hemiplegia and hemiparesis following cerebral infarction affecting left non-dominant side; E87.20 Acidosis, unspecified; E51.9 Thiamine deficiency, unspecified; R65.10 Systemic inflammatory response syndrome (SIRS) of non-infectious origin without acute organ dysfunction; N39.0 Urinary tract infection, site not specified; F10.21 Alcohol dependence, in remission; I95.9 Hypotension, unspecified; K74.60 Unspecified cirrhosis of liver; I10 Essential (primary) hypertension; E86.0 Dehydration; F32.A Depression, unspecified; Y90.4 Blood alcohol level of 80-99 mg/100 ml; E87.8 Other disorders of electrolyte and fluid balance, not elsewhere classified; I87.8 Other specified disorders of veins; Z98.890 Other specified postprocedural states; Z86.19 Personal history of other infectious and parasitic diseases; Z59.00 Homelessness unspecified; W05.0XXA Fall from non-moving wheelchair, initial encounter; Z91.81 History of falling; Z79.811 Long term (current) use of aromatase inhibitors
CPT/HCPCS: 70450; 71046; 73090; 73562-LT; 73590; 80048; 80053; 81001; 82550; 83605; 83735; 83930; 84100; 85025; 87086; 92610; 93005; 93010; 96365; 96367; 96372; 96375; 96376; 97116; 97162; 97166; 97535; 99285-25; A9270; G0378; G0480; J0696; J1200; J1650; J1885; J3370; J3411; J7030; J7050

== ENCOUNTER 2023-05-28 20:21 | Emergency (ER) | payer MEDICARE, OTHER ==
[~2023-05-28] VITALS: Ht 177.8 cm; Wt 86.2 kg
[2023-05-28 21:11] VITALS: BP 147/83
== END 2023-05-29 00:22 | disposition home or self-care (01) ==
LOC: ER 20:21
DX: S09.90XA Unspecified injury of head, initial encounter (principal); M25.562 Pain in left knee; M79.632 Pain in left forearm; W05.0XXA Fall from non-moving wheelchair, initial encounter; I10 Essential (primary) hypertension; Z79.899 Other long term (current) drug therapy
CPT/HCPCS: 70450; 73090; 73560-LT; 99284-25; A9270

== ENCOUNTER 2023-05-29 20:20 | Emergency (ER) | payer MEDICARE, OTHER ==
[~2023-05-29] VITALS: Ht 175.3 cm; Wt 81.7 kg
[2023-05-29 20:50] VITALS: BP 141/97
== END 2023-05-29 21:30 | disposition home or self-care (01) ==
LOC: ER 20:20
DX: M25.552 Pain in left hip (principal); G89.29 Other chronic pain; M25.519 Pain in unspecified shoulder; I10 Essential (primary) hypertension; Z79.899 Other long term (current) drug therapy; Z96.7 Presence of other bone and tendon implants
CPT/HCPCS: 96372; 99283-25; J1885

== ENCOUNTER 2023-06-01 23:15 | Emergency (ER) | payer MEDICARE, OTHER ==
[~2023-06-01] VITALS: Ht 177.8 cm; Wt 83.9 kg
[2023-06-01 23:17] VITALS: BP 147/93
== END 2023-06-02 01:35 | disposition home or self-care (01) ==
LOC: ER 23:15
DX: M25.532 Pain in left wrist (principal); I10 Essential (primary) hypertension; I69.354 Hemiplegia and hemiparesis following cerebral infarction affecting left non-dominant side; Z79.899 Other long term (current) drug therapy; W18.30XA Fall on same level, unspecified, initial encounter
CPT/HCPCS: 73110; 99283-25

== ENCOUNTER 2023-06-02 12:34 | Emergency (ER) | payer OTHER, MEDICARE ==
[~2023-06-02] VITALS: Ht 167.6 cm; Wt 70.3 kg
[2023-06-02 13:07] VITALS: BP 157/89
[2023-06-02 13:57] LABS: BASOPHILS ABSOLUTE AUTO 0.01 K/mm3 (0.00-0.23); BASOPHILS PERCENT AUTO 0 % (0-2); EOSINOPHILS ABSOLUTE AUTO 0.11 K/mm3 (0.00-0.68); EOSINOPHILS PERCENT AUTO 2 % (0-6); Hematocrit 39.1 % (37.0-53.0); Hemoglobin 13.2 g/dL (13.5-17.5); IMMATURE GRAN ABSOLUTE AUTO 0.01 K/mm3 (0.00-0.10); IMMATURE GRAN PERCENT AUTO 0 % (0-1); LYMPHOCYTES ABSOLUTE AUTO 1.61 K/mm3 (0.84-5.20); LYMPHOCYTES PERCENT AUTO 27 % (21-46); MONOCYTES ABSOLUTE AUTO 0.56 K/mm3 (0.16-1.47); MONOCYTES PERCENT AUTO 9 % (4-13); Mean Corpuscular HGB 34.1 pg (26.0-34.0); Mean Corpuscular HGB Conc 33.8 g/dL (31.5-36.5); Mean Corpuscular Volume 101 fL (80-100); Mean Platelet Volume 10.2 fL (9.1-12.4); NEUTROPHILS ABSOLUTE AUTO 3.69 K/mm3 (1.96-9.15); NEUTROPHILS PERCENT AUTO 62 % (41-73); Platelet Count 279 K/mm3 (150-400); RDW Coefficient Variation 11.9 % (11.7-14.2); RDW Standard Deviation 44.1 fL (35.1-46.3); Red Blood Cell Count 3.87 M/mm3 (4.30-5.90); White Blood Cell Count 5.99 K/mm3 (4.00-11.30)
[2023-06-02 14:33] LABS: Albumin, Blood 3.3 g/dL (3.4-5.0); Albumin/Globulin Ratio 0.7 (0.8-1.8); Bilirubin, Total 0.8 mg/dL (0.1-1.0); Bun/Creatinine Ratio 3.2 (12.0-20.0); Calcium, Blood 8.9 mg/dL (8.5-10.1); Creatinine, Blood 0.62 mg/dL (0.60-1.20); Globulin, Blood 4.5 g/dL (2.2-4.0); Potassium, Blood 3.3 mmol/L (3.5-5.5); Total Protein, Blood 7.8 g/dL (6.4-8.2)
== END 2023-06-02 13:58 | disposition left against medical advice (07) ==
LOC: ER 12:34
PROVIDERS: Student in an Organized Health Care Education/Training Program
DX: M25.532 Pain in left wrist (principal); I69.354 Hemiplegia and hemiparesis following cerebral infarction affecting left non-dominant side; Z53.29 Procedure and treatment not carried out because of patient's decision for other reasons; Y92.59 Other trade areas as the place of occurrence of the external cause; W01.0XXA Fall on same level from slipping, tripping and stumbling without subsequent striking against object, initial encounter
CPT/HCPCS: 80053; 85025; G0480

== ENCOUNTER 2023-06-05 15:54 | Emergency (ER) | payer MEDICARE, OTHER ==
[~2023-06-05] VITALS: Ht 177.8 cm; Wt 86.2 kg
[2023-06-05 16:18] VITALS: BP 124/96
== END 2023-06-05 17:21 | disposition left against medical advice (07) ==
LOC: ER 15:54
DX: M25.532 Pain in left wrist (principal); W18.30XA Fall on same level, unspecified, initial encounter; Z53.21 Procedure and treatment not carried out due to patient leaving prior to being seen by health care provider
CPT/HCPCS: 73110

== ENCOUNTER 2024-03-09 20:58 | Emergency (ER) | payer MEDICARE, OTHER ==
[~2024-03-09] VITALS: Ht 180.3 cm; Wt 88.5 kg
[2024-03-09] MEDS ORDERED: Ondansetron HCl 2 MG / ML 2ML Vial IV ONE (21:40)
[2024-03-09] MEDS ORDERED: NS 1,000 ML IV SCH (21:40)
[2024-03-09 22:23] LABS: BASOPHILS ABSOLUTE AUTO 0.01 K/mm3 (0.00-0.23); BASOPHILS PERCENT AUTO 0 % (0-2); EOSINOPHILS PERCENT AUTO 0 % (0-6); Hematocrit 41.4 % (37.0-53.0); Hemoglobin 15.1 g/dL (13.5-17.5); IMMATURE GRAN ABSOLUTE AUTO 0.04 K/mm3 (0.00-0.10); IMMATURE GRAN PERCENT AUTO 0 % (0-1); LYMPHOCYTES ABSOLUTE AUTO 0.72 K/mm3 (0.84-5.20); LYMPHOCYTES PERCENT AUTO 6 % (21-46); MONOCYTES PERCENT AUTO 4 % (4-13); Mean Corpuscular HGB 33.3 pg (26.0-34.0); Mean Corpuscular HGB Conc 36.5 g/dL (31.5-36.5); Mean Corpuscular Volume 91 fL (80-100); Mean Platelet Volume 10.2 fL (9.1-12.4); NEUTROPHILS ABSOLUTE AUTO 10.32 K/mm3 (1.96-9.15); NEUTROPHILS PERCENT AUTO 90 % (41-73); Platelet Count 169 K/mm3 (150-400); RDW Coefficient Variation 11.9 % (11.7-14.2); RDW Standard Deviation 40.1 fL (35.1-46.3); Red Blood Cell Count 4.53 M/mm3 (4.30-5.90); White Blood Cell Count 11.49 K/mm3 (4.00-11.30)
[2024-03-09 22:42] LABS: Alanine Aminotransfer (ALT/SGP 29 U/L (12-78); Albumin, Blood 3.9 g/dL (3.4-5.0); Albumin/Globulin Ratio 0.9 (0.8-1.8); Alk Phos 83 U/L (50-136); Anion Gap 12 mmol/L (3-11); Aspartate Aminotrans (AST/SGOT 45 U/L (12-37); Bilirubin, Total 2.2 mg/dL (0.1-1.0); Blood Urea Nitrogen 7 mg/dL (8-24); Bun/Creatinine Ratio 10.2 (12.0-20.0); CO2, Blood 24 mmol/L (21-32); Calcium, Blood 9.1 mg/dL (8.5-10.1); Chloride, Blood 104 mmol/L (98-108); Creatinine, Blood 0.69 mg/dL (0.60-1.20); Ethanol (Alcohol), Blood, Med <3 mg/dL; Globulin, Blood 4.3 g/dL (2.2-4.0); Glomerular Filtration Rate 105 (60-); Glucose, Blood 167 mg/dL (70-99); Potassium, Blood 3.5 mmol/L (3.5-5.5); Sodium, Blood 136 mmol/L (136-145); Total Protein, Blood 8.2 g/dL (6.4-8.2)
[2024-03-10] MEDS ORDERED: ONDA4ODT MM (00:01)
[2024-03-10 00:05] VITALS: BP 177/102
== END 2024-03-10 00:30 | disposition home or self-care (01) ==
LOC: ER 20:58
PROVIDERS: Emergency Medicine
DX: R51.9 Headache, unspecified (principal); R11.2 Nausea with vomiting, unspecified; I10 Essential (primary) hypertension; Z86.73 Personal history of transient ischemic attack (TIA), and cerebral infarction without residual deficits; Z79.899 Other long term (current) drug therapy
CPT/HCPCS: 70450; 80053; 84484; 85025; 93005; 93010; 96361; 96374; 99284-25; J2405; J7030

== ENCOUNTER 2025-03-27 00:38 | Inpatient (IN) | payer MEDICARE ==
[~2025-03-27] VITALS: Ht 177.8 cm; Wt 75.4 kg
[2025-03-27] VITALS (24 sets, daily range): BP systolic 154–187; BP diastolic 88–130
[~2025-03-27 00:38] MED LIST changes: +ONDA4ODT MM
[2025-03-27 01:27] LABS: BASOPHILS ABSOLUTE AUTO 0.03 K/mm3 (0.00-0.23); BASOPHILS PERCENT AUTO 0 % (0-2); EOSINOPHILS ABSOLUTE AUTO 0.04 K/mm3 (0.00-0.68); EOSINOPHILS PERCENT AUTO 0 % (0-6); Hematocrit 38.9 % (37.0-53.0); Hemoglobin 13.9 g/dL (13.5-17.5); IMMATURE GRAN ABSOLUTE AUTO 0.05 K/mm3 (0.00-0.10); IMMATURE GRAN PERCENT AUTO 0 % (0-1); LYMPHOCYTES ABSOLUTE AUTO 1.52 K/mm3 (0.84-5.20); LYMPHOCYTES PERCENT AUTO 13 % (21-46); MONOCYTES ABSOLUTE AUTO 1.01 K/mm3 (0.16-1.47); MONOCYTES PERCENT AUTO 9 % (4-13); Mean Corpuscular HGB Conc 35.7 g/dL (31.5-36.5); Mean Corpuscular Volume 95 fL (80-100); NEUTROPHILS ABSOLUTE AUTO 9.30 K/mm3 (1.96-9.15); NEUTROPHILS PERCENT AUTO 78 % (41-73); NRBC ABSOLUTE 0.00 K/mm3 (0.00-0.02); NRBC Auto 0.0 /100 WBC (0.0-0.2); Platelet Count 204 K/mm3 (150-400); RDW Coefficient Variation 11.9 % (11.7-14.2); RDW Standard Deviation 41.1 fL (35.1-46.3)
[2025-03-27 01:46] LABS: Alanine Aminotransfer (ALT/SGP 49 U/L (12-78); Albumin, Blood 3.7 g/dL (3.4-5.0); Albumin/Globulin Ratio 0.9 (0.8-1.8); Anion Gap 23 mmol/L (3-11); Aspartate Aminotrans (AST/SGOT 79 U/L (12-37); Bilirubin, Total 4.7 mg/dL (0.1-1.0); Blood Urea Nitrogen 17 mg/dL (8-24); CO2, Blood 15 mmol/L (21-32); Calcium, Blood 8.8 mg/dL (8.5-10.1); Chloride, Blood 92 mmol/L (98-108); Creatinine, Blood 0.68 mg/dL (0.60-1.20); Globulin, Blood 3.9 g/dL (2.2-4.0); Glucose, Blood 101 mg/dL (70-99); Potassium, Blood 3.4 mmol/L (3.5-5.5); Sodium, Blood 127 mmol/L (136-145); Total Protein, Blood 7.6 g/dL (6.4-8.2)
[2025-03-27] MEDS ORDERED: Diazepam 5 MG / ML 2ML SYR IV ONE (02:15)
[2025-03-27] MEDS ORDERED: NS 1,000 ML IV SCH ×2 (03:25→05:00)
[2025-03-27] MEDS ORDERED: HydrALAZINE HCl 20 MG / ML 1ML Vial IV PRN (04:20)
[2025-03-27] MEDS ORDERED: Potassium Chl 20MEQ/Water100ML 100 ML IV STA (04:44)
[2025-03-27] MEDS ORDERED: Diazepam 5 MG / ML 2ML SYR IV PRN ×2 (05:25)
[2025-03-27 06:37] LABS: Ethanol (Alcohol), Blood, Med <3 mg/dL; Magnesium, Blood 1.8 mg/dL (1.6-2.4); Phosphorus, Blood 1.7 mg/dL (2.5-4.9); Thyroid Stimulating Hormone 0.986 uIU/mL (0.360-4.800)
--- NOTE | 2025-03-27 07:09 | NUR ---
SHIFT SUMMARY PATIENT ARRIVED FROM ED AT 0520. NS RUNNING THROUGH RIGHT HAND PIV. PATIENT AWAKE AND ALERT. ORIENTED TO SELF AND DATE. ABLE TO FOLLOW COMMANDS IN ALL 4 EXTREMITIES, HOWEVER FINE MOTOR MOVEMENTS ON LEFT SIDE WERE LIMITED. PATIENT REPORTS THIS IS DUE TO PREVIOUS STROKE. FOOT DROP ON LEFT LEFT LEG AND CONTRACTED LEFT UPPER ARM. NO FACIAL DROOP NOTED. SHORT TERM MEMORY NOTED TO BE IMPAIRED, PATIENT FREQUENTLY ASKING FOR IBUPROFEN, FORGETTING RN STATED IT WAS NOT ON HIS EMAR. ON CONTINOUS CARDIAC MONITORING, HR IN 100-110S. SBP 180-200, PRN HYDRALAZINE GIVEN. BREATH SOUNDS CLEAR OVER DIMINISHED, ON ROOM AIR. EXCORIATED RASH NOTED ON SACRUM AND RIGHT HIP. BLANCHABLE REDNESS NOTED ON LEFT ELBOW. RASH ON GENITAL NOTED. PICTURES IN CHART. PIV IN LEFT HAND. POWERGLIDE INSERTED BY MALLIKA CASTANEDA IN RIGHT UPPER ARM BY ULTRASOUND. CARE PLAN ONGOING.
[2025-03-27] MEDS ORDERED: Sodium Phosphate 20 MM in Dextrose 5% 500 ML IV STA (07:17)
[2025-03-27] MEDS ORDERED: Enoxaparin 40 MG/0.4 ML SYR SC SCH (09:00)
--- NOTE | 2025-03-27 10:43 | NUR ---
MD Notification Spoke with MD Jenna about patient asking for bowel medications, potential PT eval dt left sided footdrop and weakness, and goals for BP. Orders given to start bowel regimin PRN, PT eval closer to DC, and to keep SBP <180.
[2025-03-27] MEDS ORDERED: Polyethylene Glycol 3350 17 gm PO PRN (10:55)
[2025-03-27] MEDS ORDERED: Docusate Sodium/Senna 1 Tab PO SCH (21:00)
[2025-03-28 03:35] VITALS: BP 144/106
[2025-03-28 03:57] LABS: Hematocrit 37.9 % (37.0-53.0); Hemoglobin 13.5 g/dL (13.5-17.5); Mean Corpuscular HGB Conc 35.6 g/dL (31.5-36.5); Mean Corpuscular Volume 95 fL (80-100); NRBC ABSOLUTE 0.00 K/mm3 (0.00-0.02); NRBC Auto 0.0 /100 WBC (0.0-0.2); Platelet Count 146 K/mm3 (150-400); RDW Coefficient Variation 11.9 % (11.7-14.2); RDW Standard Deviation 41.7 fL (35.1-46.3)
[2025-03-28 04:13] LABS: Albumin, Blood 3.5 g/dL (3.4-5.0); Anion Gap 10 mmol/L (3-11); Blood Urea Nitrogen 10 mg/dL (8-24); CO2, Blood 25 mmol/L (21-32); Calcium, Blood 8.6 mg/dL (8.5-10.1); Chloride, Blood 99 mmol/L (98-108); Creatinine, Blood 0.64 mg/dL (0.60-1.20); Glucose, Blood 91 mg/dL (70-99); Magnesium, Blood 1.9 mg/dL (1.6-2.4); Phosphorus, Blood 2.2 mg/dL (2.5-4.9); Potassium, Blood 3.0 mmol/L (3.5-5.5); Sodium, Blood 131 mmol/L (136-145)
[2025-03-28 05:20] VITALS: BP 144/106
--- NOTE | 2025-03-28 05:48 | NUR ---
SHIFT SUMMARY - A/OX4, PLEASANT, COOPERATIVE WITH CARE, VERBALIZES NEEDS. HX OF CVA WITH LEFT SIDED DEFICITS. SLIGHT LEFT SIDE FACIAL DROOP, LEFT ARM IS WEAK, SLIGHTLY CONTRACTED. CIWA SCORES 5-10, MEDICATING PER MAR. ON RA, SATS ABOVE 95%. HYPERTENSIVE WITH BP IN 140 S-170 S, BUT IN A SINUS RHYTHM. USING BEDSIDE URINAL, NO BM SINCE ADMISSION. GENTLE BOWEL CARE BEGAN YESTERDAY. PER SPEECH THERAPY RECOMMENDATIONS, PT TO TAKE ONE PILL AT A TIME. PATIENT HAS VARIOUS AREAS OF EXCORIATION THAT HE STATES IS DUE TO SLEEPING ON HIS RIGHT SIDE. EXCORIATION IS LOCATED ON HIS RIGHT HIP/THIGH, SCROTUM, AND TIP OF PENIS. PHOTOS IN CHART.
[2025-03-28 07:38] VITALS: BP 171/105
[2025-03-28 10:55] VITALS: BP 148/99
--- NOTE | 2025-03-28 12:48 | NUR ---
MORNING NOTE THIS RN ASSUMED CARE AT APPROX 0715. PATIENT ANSWERS ORIENTATION QUESTIONS APPROPRIATELY - FORGETFUL. EASILY REDIRECTABLE - BED ALARM/CHAIR ALARM IN USE FOR SAFETY. CIWA <8 - MANAGING PER EMAR. HX OF CVA W/ L SIDED DEFICITS. PT PALAK COMPLETED THIS MORNING - AMBULATING W/ 1P ASSIST GB. REFUSING USE OF WALKER. TELEMETRY SHOWING SINUS/SINUS TACH 90s-100s. SBP 170s THIS MORNING. BP IMPROVED W/ ORDERED LISINOPRIL AND NORVASC - CURRENT SBP 140s. DENIES CHEST PAIN, PRESSURE. ON ROOM AIR - SATs >90%. BED BATH COMPLETED THIS MORNING - REDNESS/EXCORIATION TO R HIP AND BOTTOM - MD MIR AWARE. APPLYING LOTION PRN. MEPIPLEX IN PLACE. VOIDING. X1 BM THIS MORNING. CALL LIGHT IN REACH. BED ALARM ON.
--- NOTE | 2025-03-28 15:37 | NUR ---
REPORT GIVEN TO GERHARD TENA TO ASSUME CARE AT THIS TIME
[2025-03-28 16:25] VITALS: BP 151/89
--- NOTE | 2025-03-28 18:29 | NUR ---
EOS: ONLY CHANGES FROM PREVIOUS RN WAS DUE TO HIS INCREASED BLOOD PRESSURE DURING THE DAY HE WAS STARTED ON BP MEDS WHICH IMPROVED FROM 170S AT HIGH TO EVENING CHECK OF 151, WHILE TALKING AND LAUGHING. ADDITIONALLY HE WAS MORE AGITATED DUE HIS BED ALARM, HOWEVER, AFTER MULTIPLE STAFF TALKING AND REASSURING PATIENT WAS ABLE TO CALM, HAS BEEN PLEASANT FOR THIS RN. NO ACUTE CONCERNS CIWAS <8 FOR THIS RN. PLAN OF CARE CONTINUES
[2025-03-28 19:42] VITALS: BP 134/83
--- NOTE | 2025-03-28 23:09 | NUR ---
PATIENT YELLING AND CUSSING IN ROOM, WENT TO ROOM TO CHECK ON PATIENT. PATIENT ASKED TO BRING DOWN VOLUME, PATIENT REPORTS THAT HE IS FRUSTRATED THAT HE HAS AN ALARM ON-DISCUSSED WITH PATIENT THE REASON FOR THE BED ALARM PATIENT HAD A RECENT FALL IN THE HOSPITAL AND PATIENT IS ADIMIT THAT IT WAS ONE RANDOM FALL-DISCUSSED WITH PATIENT THAT ACCIDENTS HAPPEN AND WE UNDERSTAND THAT BUT WE ALSO NEED TO KEEP HIS SAFE THERE IS A LOT OF OBSTICLES IN ROOM SUCH IV POLE, TABLE, COMPUTER, CHAIRS AND WALKERS WELL THAT THE FALL OCCURED IN THE BATHROOM AND WE WANT TO KEEP HIM SAFE. DISCUSSED WITH PATIENT TO USE CALL LIGHT AND STAFF WILL BE IN TO HELP HIM UP-ALSO OFFERED PATIENT TO TAKE A WALK-PATIENT REFUSED TO TALK A WALK. WHEN THIS RN ASKED PATIENT IF HE NEEDED TO USE THE BATHROOM AT THIS TIME HE REFUSED-PATIENT NOT NEEDING TO GET UP BUT PATIENT ENDORSES FRUSTRATION WITH THE ALARM BEING SET OR ON. THIS RN TRYING TO REASSURE PATIENT, ASSESSED ALL PATIENT NEEDS PATIENT STATED "PEOPLE IN [place] GET TREATED BETTER, I AM TREATED LIKE SHIT" THIS RN ASKED PATIENT WHAT HAPPENED TO WHY HE FELT THIS WAY, PATIENT STATED "MEDICAL CARE IS WONDERFUL, PERSONAL CARE IS GREAT, BUT I AM NOT IN [place] AND SHOULD BE ABLE TO GET UP WHEN I WANT TO, PEOPLE IN [place] HAVE MORE FREEDOM". THIS RN ASSESSED PATIENT NEEDS, PATIENT DENIED NEEDS AT THIS TIME- DOES NOT NEED TO USE THE BATHROOM, HAS WATER AND SODA, DENIES NEED FOR A SNACK, OR ANY NEEDS AT THIS TIME. BED IS LOCKED IN THE LOWEST POSITION WITH CALL LIGHT IN REACH, BED EXIT ALARM IS ON.
[2025-03-29] VITALS (8 sets, daily range): BP systolic 118–186; BP diastolic 79–101
--- NOTE | 2025-03-29 | NUR ---
PATIENT BECOMING INCREASINGLY AGGITATED, UNABLE TO REDIRECT, NOT COOPERATIVE WITH CARE, PATIENT MAKING BODY MOVEMENTS TOWARDS STAFF IN AN AGGRESSIVE MANNOR. SECURITY CALLED FOR STAND BY ASSISTANCE, PATIENT IS NOT RECEPTIVE WANTING TO LEAVE AMA, PATIENT IS ALERT TO SELF WANTING TO GET HIS PANTS AND SHOES ON TO GO TO THE STORE "TO GET SOMETHING TO HELP ME SLEEP AND I WILL BE BACK" DISCUSSED WITH PATIENT THAT HE IS IN THE HOSPITAL AT [facility] AND IS NOT ABLE TO LEAVE THE FLOOR AND COME BACK TO THE HOSPITAL-THIS INCREASED PATIENTS AGGITATION. PATIENT ATTEMPTING TO URINATE ON STAFF, USING INAPPROPRIATE LANGUAGE TOWARDS STAFF, STATING "I WILL USE A BOW IF I WANTED TO HIT YOU". UP TO BEDSIDE TO TALK WITH PATIENT AND DETERMINED PATIENT IS A DANGER TO SELF AND NOT ALERT AT THIS TIME TO MAKE COGNITIVE DECISIONS. 0050-PATIENTS UNSAFE BEHAVIOR INDICATIVE FOR RESTRAINTS-SEE RESTRAINT DOCUMENTATION. 0130-PATIENT PLACED IN 4 POINT SOFT RESTRAINGTS FOR PATIENT SAFETY-PATIENT CONTINUING TO GET OUT OF BED UNSAFELY, NON-RECEPTIVE TO REORIENTATION, NOT COOPERATIVE WITH CARE.
[2025-03-29] MEDS ORDERED: Haloperidol Lactate Inj. 5 MG/ML Injection ONE (00:42)
[2025-03-29] MEDS ORDERED: Haloperidol Lactate Inj. 5 MG/ML Injection IV ONE (01:05)
[2025-03-29] MEDS ORDERED: DiphenhydrAMINE HCl 50 MG/ML 1ML Vial IV ONE (01:15)
[2025-03-29 05:00] LABS: Albumin, Blood 3.1 g/dL (3.4-5.0); Anion Gap 8 mmol/L (3-11); Blood Urea Nitrogen 7 mg/dL (8-24); CO2, Blood 27 mmol/L (21-32); Calcium, Blood 8.5 mg/dL (8.5-10.1); Chloride, Blood 106 mmol/L (98-108); Creatinine, Blood 0.71 mg/dL (0.60-1.20); Glucose, Blood 119 mg/dL (70-99); Phosphorus, Blood 2.9 mg/dL (2.5-4.9); Potassium, Blood 2.7 mmol/L (3.5-5.5); Sodium, Blood 138 mmol/L (136-145)
--- NOTE | 2025-03-29 06:38 | NUR ---
SHIFT SUMMARY. PATIENT IS ALERT AND ORIENTED TO SELF AND PERSON WITH CONFUSION. PATIENT IS AWARE OF CONFUSION. PATIENT IS IN SOFT WRIST RESTRAINTS TO BOTH HANDS-THIS RN NOTIFIED PATIENT OF REASON FOR RESTRAINTS AND BEHAVIOR/UNSAFE BEHAVIOR THAT NEEDS IMPROVEMENT TO HAVE RESTRAINTS REMOVED FOR PATIENT SAFETY-DURING THIS TIME PATIENT REFUSES TO TALK TO THIS RN AND ASKS "WHO JUDGES THE BEHAVIOR", ATTEMPTED TO EXPLAIN PROCESS TO PATIENT-PATIENT NOT RECEPTIVE. PATIENT HAS 1:1 SITTER AT BEDSIDE FOR PATIENT SAFETY. PATIENT HAS IV THIAMINE AND FLUIDS INFUSING PER ORDER. PATIENT WANTING SHOES THIS MORNING TO "GO TO THE STORE TO GET VODKA OR FIREBALL". PATIENT IS ABLE TO TAKE MEDICATIONS ONE AT A TIME WHOLE WITH WATER. PATIENT ASKING FOR "VALLUM TO CALM DOWN". SEE PREVIOUS NOTES. BED IS LOCKED IN THE LOWEST POSITION WITH CALL LIGHT IN REACH, 1:1 SITTER IN PATIENTS ROOM, PATIENTS NEEDS ASSESSED AT ADDRESSED. CARE IS ONGOING.
--- NOTE | 2025-03-29 12:45 | NUR ---
SHIFT NOTE: PATIENT AT THE START OF THE SHIFT WAS HAVING AN INCREDIBLY MORE DIFFICULT WITH SPEECH, STRENGTH, OVERALL AWARENESS. A/O X 2-3. ENDORSING HE NEEDS TO LEAVE TO THE STORE TO GET VODKA, INFORMED PATIENT OF ETOH WITHDRAWAL WORSENING WHICH HAS CAUSED THIS CONFUSION SPEECH AND WEAKNESS. PATIENT VERBALIZES UNDERSTANDING, HOWEVER, STILL ATTEMPTING TO GET OUT OF BED UNSAFELY, THIS MORNING DID NOT REORIENT EASILY TO VERBAL, NOW THAT HE HAS BEEN MEDICATED PER INCREASING CIWA SCORE, SPEECH CLEARED, AND ORIENTION IMPROVED BUT WAXES AND WANES FREQUENTLY, WELL HIS MOOD IS VERY LABILE. STOPPED FLUIDS, TOLERATING PO INTAKE. 1:1 SITTER FOR SAFETY. PUREWICK IN PLACE WITH WELL URINE OUTPUT. STILL PASSING GAS, DENIES ABD PAIN. DENIES CHEST PAIN PRESSURE OR SOB. PATIENT FOR THIS RN DOES TAKE ORAL MEDICATIONS VEST IN PLACE ORDER OBTAINED THIS AM WITH DR. MIR. PLAN OF CARE CONTINUES.
--- NOTE | 2025-03-29 18:26 | NUR ---
EOS: PATIENT STILL WITH LABILE AGITATION AND MENTATION. STILL WAXING AND WANING BUT OVERALL APPEARS TO BE MUCH BETTER THIS EVENING THAN THIS MORNING, BLOOD PRESSURE IMPROVED THIS EVENING. GREAT URINE OUTPUT, DID INFORM HIS MOTHER THIS AM ABOUT PATIENT BEING IN RESTRAINTS. DENIES CHEST PAIN PRESSURE. PLAN OF CARE COTINUES, NO OTHER ACUTE CONCERNS FROM SHIFT NOTE.
--- NOTE | 2025-03-29 19:28 | NUR ---
ASSUMPTION NOTE: THIS RN TO ASSUME CARE OF PT. PATIENT IS AWAKE IN BED LISTENING TO MUSIC WITH FLUIDS RUNNING AT 125. PATIENT IS ALERT AND ORIENTED X4, SLURRED SPEECH, LEFT SIDED DEFICIT. PUPILS EQUAL AND REACTIVE. PT DENIED ANY CHEST PAIN/PRESSURE OR FEELING SHORT OF BREATH. HAS CALL LIGHT WITHIN REACH, BED IN LOWEST POSITION & SITTER IN ROOM.
[2025-03-30 03:59] VITALS: BP 137/91
--- NOTE | 2025-03-30 04:02 | NUR ---
SHIFT SUMMARY: PATIENT IS ALERT AND ORIENTED X4 AT START OF SHIFT AND THROUGHOUT BECAME MORE CONFUSED TO WHERE HE WAS AT.SLURRED SPEECH WHICH IS BASELINE FOR PT,HX OF CVA WITH LEFT SIDED WEAKNESS. SITTER IN ROOM AND BED ALARM ON. PT WAS NOT GIVEN ANYTHING PER EMAR. PATIENT WAS ABLE TO SLEEP THROUGHOUT SHIFT WITHOUT ANY COMPLAINTS. PATEINT FLUIDS WERE SALINE LOCKED,PER EMAR TO SALINE LOCK WITH ORAL INTAKE. PATIENT HAS CALL LIGHT WITHIN REACH, BED IN LOWEST POSITION WITH SITTER AND VEST RESTRAINTS ON DENYING ANY NEEDS AT THIS TIME.
[2025-03-30 04:03] LABS: Hematocrit 33.1 % (37.0-53.0); Hemoglobin 11.6 g/dL (13.5-17.5); Mean Corpuscular HGB Conc 35.0 g/dL (31.5-36.5); Mean Corpuscular Volume 97 fL (80-100); NRBC ABSOLUTE 0.00 K/mm3 (0.00-0.02); NRBC Auto 0.0 /100 WBC (0.0-0.2); Platelet Count 131 K/mm3 (150-400); RDW Coefficient Variation 12.1 % (11.7-14.2); RDW Standard Deviation 42.9 fL (35.1-46.3)
[2025-03-30 08:26] VITALS: BP 150/91
--- NOTE | 2025-03-30 08:57 | NUR ---
ASSUMPTION OF CARE: PATIENT IS ALERT AND ORIENTED X 4. PLEASANT COOPERATIVE, NOT ATTEMPTING TO GET OUT OF BED UNSAFELY, ABLE TO FOLLOW DIRECTION AND COMMANDS SIGNIFICANTLY BETTER, STILL HAVING SPEECH SLURRING, WHICH APPEARS TO BE BASELINE, DENIES CHEST PAIN PRESSURE OR SOB AT REST. GREAT OUTPUT PENDING CHEMISTRY LABS. PATIENT NO LONGER IN VEST RESTRAINT, SITTER STILL IN THE ROOM. NO ACUTE CONCERN BESIDE ELECTROLYTE PANEL.
[2025-03-30 12:23] LABS: Albumin, Blood 3.0 g/dL (3.4-5.0); Anion Gap 17 mmol/L (3-11); Blood Urea Nitrogen 7 mg/dL (8-24); CO2, Blood 25 mmol/L (21-32); Calcium, Blood 8.4 mg/dL (8.5-10.1); Chloride, Blood 119 mmol/L (98-108); Creatinine, Blood 0.72 mg/dL (0.60-1.20); Glucose, Blood 127 mg/dL (70-99); Magnesium, Blood 1.7 mg/dL (1.6-2.4); Phosphorus, Blood 4.0 mg/dL (2.5-4.9); Potassium, Blood 4.3 mmol/L (3.5-5.5); Sodium, Blood 157 mmol/L (136-145)
[2025-03-30] MEDS ORDERED: Mag Sulfate 1 GM/D5% 100ML 100 ML IV STA (14:03)
[2025-03-30 15:39] VITALS: BP 163/102
--- NOTE | 2025-03-30 17:17 | NUR ---
PAtient is lying in bed and awake. He tells me about his stroke, his personal struggles and his Yazidism avelino. I provided spiritual guidance and prayer. Patient responded well and showed signs of an elevated mood.
[2025-03-30 18:00] LABS: Anion Gap 6.0 mmol/L (3-11); Blood Urea Nitrogen 6.0 mg/dL (8-24); CO2, Blood 27.0 mmol/L (21-32); Calcium, Blood 8.4 mg/dL (8.5-10.1); Chloride, Blood 108.0 mmol/L (98-108); Creatinine, Blood 0.69 mg/dL (0.60-1.20); Glucose, Blood 125.0 mg/dL (70-99); Potassium, Blood 3.2 mmol/L (3.5-5.5)
[2025-03-30 18:07] LABS: Sodium, Blood 138.0 mmol/L (136-145)
[2025-03-30 20:00] VITALS: BP 161/98
--- NOTE | 2025-03-30 22:30 | NUR ---
DOCTOR COMMUNICATION PT WITH COMPLAINTS OF INSOMNIA. PREVIOUS CIWA WAS 8 AT BEGINNING OF SHIFT BUT IS NEGATIVE CURRENTLY BESIDES SOME ANXIETY REGARDING NOT SLEEPING. PT ASKING FOR MEDICATION TO HELP HIM SLEEP. REPORTED THAT MELATONIN DOES NOT HELP. REPORTED THAT HE HAS TAKEN SEROQUEL IN THE PAST BEFORE HIS PRESRIPTION RAN OUT. THIS RN SPOKE TO NOC RESIDENT MD RGANT REGARDING PT REQUESTING MEDICATION FOR SLEEP. MD GRANT WITH ORDER FOR ONE TIME SEROQUEL. SEE EMAR. SITTER REMAINS AT BEDSIDE. BED IN LOWEST POSITION. BED ALARM ON. CALL LIGHT WITHIN REACH.
[2025-03-30 23:00] VITALS: BP 138/92
[2025-03-31 03:18] VITALS: BP 146/94
--- NOTE | 2025-03-31 04:28 | NUR ---
SHIFT SUMMARY THIS RN ASSUMED CARE OF PATIENT AT 1900. SEE PREVIOUS NOTE REGARDING DOCTOR COMMUNICATION AND SEROQUEL ORDER. PT WITH CIWA OF 8 AT BEGINNING OF SHIFT. OTHERWISE CIWA HAS BEEN NEGATIVE TO A MAX OF 4 SINCE. SITTER REMAINED AT BEDSIDE T/O THIS SHIFT. BP STABLE. SR ON MONITOR WITH HR 80-90 S. ON RA WITH SPO2 >92%. OCCASIONAL DESATTING WITH SLEEP. PT ABLE TO REPOSITION SELF IN BED INDEPENDENTLY. MALE WICKING SYSTEM IN PLACE. PT A&O X4 T/O THIS SHIFT. MINIMALLY ANXIOUS/AGGITATED BY STAFF, BUT MOSTLY HAS BEEN CALM AND COOPERATIVE WITH CARE. BED IN LOWEST POSITION AND CALL LIGHT WITHIN REACH. BED ALARM ON. THIS RN WILL REPORT TO ONCOMING DAYSHIFT RN.
[2025-03-31 08:11] VITALS: BP 149/95
[2025-03-31 10:09] LABS: Anion Gap 6.0 mmol/L (3-11); Blood Urea Nitrogen 6.0 mg/dL (8-24); CO2, Blood 28.0 mmol/L (21-32); Calcium, Blood 8.2 mg/dL (8.5-10.1); Chloride, Blood 109.0 mmol/L (98-108); Creatinine, Blood 0.82 mg/dL (0.60-1.20); Glucose, Blood 113.0 mg/dL (70-99); Magnesium, Blood 2.1 mg/dL (1.6-2.4); Potassium, Blood 3.0 mmol/L (3.5-5.5); Sodium, Blood 140.0 mmol/L (136-145)
[2025-03-31 12:14] VITALS: BP 176/105
[2025-03-31] MEDS ORDERED: Potassium Chloride 60 MEQ IV ONE (13:20)
[2025-03-31 16:01] VITALS: BP 133/80
--- NOTE | 2025-03-31 16:38 | NUR ---
Km is sitting on the EOB and alert. He immediately tells me that it has been a rough day. He does not give details but shares more about the D/C process and his hope to get back to the [facility]. He expresses his appreciation for [facility] and for his avelino. He asks for prayer which I gladly supply. Patient voices his appreciation for the visit and the prayer. I will continue to remain available to patient and fmaily.
--- NOTE | 2025-03-31 17:01 | NUR ---
SHIFT SUMMARY. SHIFT HAS GONE WELL OVERALL. PT AOX2-3 PRIMARILY WITH SOME FLUCTUATION. HAS BEEN COOPERATIVE WITH CARE THROUGHOUT SHIFT ALTHOUGH AT TIMES VERY IRRITABLE. VITALS HAVE BEEN STABLE OUTSIDE OF ONE INSTANCE OF HTN THAT WAS MANAGED VIA EMAR. OTHERWISE MAINTAINING ADEQUATE SATURATION ON ROOM AIR, RUNNING SINUS ON TELE. HAS DENIED PAIN THROUGHOUT SHIFT OUTSIDE OF ONCE THIS AFTERNOON THAT WAS MANAGED VIA EMAR. CIWA THIS MORNING WAS 9, DISCUSSED W/ DR. RODRIGUEZ LIKELY THAT PT WAKING UP UPSET AND GROGGY CONTRIBUTED TO ELEVATED CIWA SCORE. SINCE THAT TIME, PT HAS SCORED A 4 AND THEN A 2, NO INDICATION OF WITHDRAWAL SYMPTOMS. PERFORMED STRAIGHT CATH THIS AFTERNOON D/T RETENTION AND DRAINED >800mls. SHIFT OTHERWISE UNREMARKABLE. BED LOCKED IN LOWEST POSITION. CALL LIGHT LEFT WITHIN REACH. 1:[address]
[2025-03-31] MEDS ORDERED: Potassium Chl 20MEQ/Water100ML 100 ML IV ONE (17:30)
[2025-03-31 19:51] VITALS: BP 137/75
[2025-04-01 00:12] VITALS: BP 133/85
[2025-04-01 03:40] VITALS: BP 142/82
[2025-04-01 04:33] LABS: Anion Gap 8.0 mmol/L (3-11); Blood Urea Nitrogen 7.0 mg/dL (8-24); CO2, Blood 26.0 mmol/L (21-32); Calcium, Blood 8.3 mg/dL (8.5-10.1); Chloride, Blood 108.0 mmol/L (98-108); Creatinine, Blood 0.85 mg/dL (0.60-1.20); Glucose, Blood 102.0 mg/dL (70-99); Magnesium, Blood 2.0 mg/dL (1.6-2.4); Potassium, Blood 3.6 mmol/L (3.5-5.5); Sodium, Blood 138.0 mmol/L (136-145)
--- NOTE | 2025-04-01 06:40 | NUR ---
SHIFT SUMMARY: PT A&OX4 ANXIOUS AND COOPERATIVE. ABLE TO MAKE NEEDS KNOWN BUT REINFORCED EDUCATION TO USE CALL LIGHT FREQUENTLY. BED/CHAIR ALARM ON AND HOURLY ROUNDING COMPLETED FOR SAFETY. PT HAVING TROUBLE URINATING DURING SHIFT. BLADDER SCAN COMPLETED. STRAIGHT CATH X1 WITH AN OUTPUT OF 350 ML. PT REPORTED FEELING ANXIOUS. MEDICATED PER EMAR FOR ANXIETY. CIWA SCORE OF 0-3 DURING SHIFT. 1 EPISODE OF URINARY INCONTINENCE AND UNMEASURED VOID. GOWN/LINEN CHANGE AND BED BATH COMPLETED. 1-2 PERSON ASSIST TO CHAIR. TOLERATING REGULAR DIET WELL. NO BM DURING SHIFT. BED ALARM ON AND CALLIGHT WITHIN REACH. SITTER AT BEDSIDE. WILL CONTINUE PLAN OF CARE TILL REPORT GIVEN TO DAY SHIFT NURSE.
[2025-04-01 07:35] VITALS: BP 162/120
[2025-04-01] MEDS ORDERED: Multivitamins 1 Tab PO SCH (09:00)
[2025-04-01] MEDS ORDERED: AMLO10 PO (10:01)
[2025-04-01] MEDS ORDERED: ONE DAILY MUL400 MCG PO (10:01)
[2025-04-01] MEDS ORDERED: B-1100 M1 PO (10:02)
--- NOTE | 2025-04-01 10:37 | NUR ---
discharge note this rn assumed care at 0700. vital signs stable. spo2 >95% on room air. patient is alert and oriented x4. perrla. patient is able to make needs known. patient denies chest pain/pressure, pain, or shorntess of breath. patient lung sounds clear. see shift assessment for further detials. md mohr in to see patient and discussed [facility] due to being medically stable. patient agrees to this plan of care. [place] with [facility] personal care aide arranged a ride for the patient back. this rn went over discharge instructions, [facility], and follow up appointment with pcp on april 07. patien verbalized understanding. patient left at [phone] with all belongings and in no distress.
== END 2025-04-01 10:13 | disposition home or self-care (01) | DRG 897 ==
LOC: ER 00:38 → ICUE 04:14 → ERHOLD 04:14 → PCU 04:14 → ICUE 05:17 → PCU 05:35
PROVIDERS: Emergency Medicine; Internal Medicine; Student in an Organized Health Care Education/Training Program; ADMIT Internal Medicine
DX: F10.131 Alcohol abuse with withdrawal delirium (principal); E87.1 Hypo-osmolality and hyponatremia; I69.354 Hemiplegia and hemiparesis following cerebral infarction affecting left non-dominant side; Z59.01 Sheltered homelessness; I10 Essential (primary) hypertension; F32.A Depression, unspecified; R00.0 Tachycardia, unspecified; F41.9 Anxiety disorder, unspecified; E86.0 Dehydration; K74.60 Unspecified cirrhosis of liver; E87.6 Hypokalemia; E83.39 Other disorders of phosphorus metabolism; R47.81 Slurred speech; Z86.19 Personal history of other infectious and parasitic diseases; Z79.899 Other long term (current) drug therapy
CPT/HCPCS: 51701; 71045; 80048; 80053; 80069; 80320; 82140; 82947; 83735; 84100; 84443; 84484; 85025; 85027; 92526; 92610; 93005; 93010; 94762; 96374; 97110; 97112; 97116; 97162; 97530; 99285-25; A9270; C1751; J0360; J1200; J1630; J1650; J3360; J3411; J3475; J3480; J7030; J7050; J7060

== ENCOUNTER 2025-04-02 01:04 | Emergency (ER) | payer MEDICARE ==
[~2025-04-02] VITALS: Ht 177.8 cm; Wt 83.9 kg
[~2025-04-02 01:04] MED LIST changes: +AMLO10 PO; +B-1100 M1 PO; +ONE DAILY MUL400 MCG PO
[2025-04-02] MEDS ORDERED: Folic Acid 1 MG TAB PO ONE ×2 (03:15→08:30)
[2025-04-02] MEDS ORDERED: NS 1,000 ML IV SCH (03:15)
[2025-04-02 03:48] LABS: BASOPHILS ABSOLUTE AUTO 0.01 K/mm3 (0.00-0.23); BASOPHILS PERCENT AUTO 0 % (0-2); EOSINOPHILS ABSOLUTE AUTO 0.07 K/mm3 (0.00-0.68); EOSINOPHILS PERCENT AUTO 1 % (0-6); Hematocrit 38.9 % (37.0-53.0); Hemoglobin 13.7 g/dL (13.5-17.5); IMMATURE GRAN ABSOLUTE AUTO 0.03 K/mm3 (0.00-0.10); IMMATURE GRAN PERCENT AUTO 1 % (0-1); LYMPHOCYTES ABSOLUTE AUTO 1.49 K/mm3 (0.84-5.20); LYMPHOCYTES PERCENT AUTO 25 % (21-46); MONOCYTES ABSOLUTE AUTO 1.08 K/mm3 (0.16-1.47); MONOCYTES PERCENT AUTO 18 % (4-13); Mean Corpuscular HGB Conc 35.2 g/dL (31.5-36.5); Mean Corpuscular Volume 98 fL (80-100); NEUTROPHILS ABSOLUTE AUTO 3.28 K/mm3 (1.96-9.15); NEUTROPHILS PERCENT AUTO 55 % (41-73); NRBC ABSOLUTE 0.00 K/mm3 (0.00-0.02); NRBC Auto 0.0 /100 WBC (0.0-0.2); Platelet Count 289 K/mm3 (150-400); RDW Coefficient Variation 12.8 % (11.7-14.2); RDW Standard Deviation 45.3 fL (35.1-46.3)
[2025-04-02 04:20] LABS: Alanine Aminotransfer (ALT/SGP 165 U/L (12-78); Albumin, Blood 3.4 g/dL (3.4-5.0); Albumin/Globulin Ratio 0.8 (0.8-1.8); Anion Gap 10 mmol/L (3-11); Aspartate Aminotrans (AST/SGOT 133 U/L (12-37); Bilirubin, Total 0.8 mg/dL (0.1-1.0); Blood Urea Nitrogen 11 mg/dL (8-24); CO2, Blood 22 mmol/L (21-32); Calcium, Blood 8.9 mg/dL (8.5-10.1); Chloride, Blood 109 mmol/L (98-108); Creatinine, Blood 0.87 mg/dL (0.60-1.20); Ethanol (Alcohol), Blood, Med <3 mg/dL; Globulin, Blood 4.3 g/dL (2.2-4.0); Glucose, Blood 146 mg/dL (70-99); Magnesium, Blood 2.0 mg/dL (1.6-2.4); Phosphorus, Blood 2.9 mg/dL (2.5-4.9); Potassium, Blood 4.1 mmol/L (3.5-5.5); Sodium, Blood 137 mmol/L (136-145); Thyroid Stimulating Hormone 3.160 uIU/mL (0.360-4.800); Total Protein, Blood 7.7 g/dL (6.4-8.2)
[2025-04-02 05:00] LABS: Source, Urine Clean Catch
[2025-04-02 05:14] LABS: Bilirubin, Urine Neg (Neg); Glucose Qualitative, Urine Neg (Neg); Ketones, Urine Neg (Neg); Leukocyte Esterase, Urine Neg (Neg); Protein, Urine 1+ (Neg); Specific Gravity, Urine 1.010 (1.003-1.022); Urobilinogen, Urine NORM (Normal)
[2025-04-02 05:30] LABS: U Amphetamine Screen Not Detected; U Barbituate Screen Not Detected; U Benzodiazapine Screen DETECTED; U Buprenorphine Screen Not Detected; U Cannabinoids Screen DETECTED; U Cocaine Screen Not Detected; U Methadone Screen Not Detected; U Methamphetamine Screen Not Detected; U Opiates Screen Not Detected; U Oxycodone Screen Not Detected; U Phencyclidine Screen Not Detected
[2025-04-02 05:31] LABS: Color, Urine Yellow (P-Yellow)
[2025-04-02 09:32] VITALS: BP 129/86
== END 2025-04-02 10:08 | disposition home or self-care (01) ==
LOC: ER 01:04
PROVIDERS: Emergency Medicine
DX: R73.9 Hyperglycemia, unspecified (principal); I10 Essential (primary) hypertension; Z86.73 Personal history of transient ischemic attack (TIA), and cerebral infarction without residual deficits; Z79.899 Other long term (current) drug therapy
CPT/HCPCS: 70450; 71045; 80053; 80320; 83735; 84100; 84439; 84443; 85025; 93005; 93010; 96360; 99284-25; A9270; J7030

== ENCOUNTER 2025-04-02 16:05 | Emergency (ER) | payer MEDICARE ==
[~2025-04-02] VITALS: Ht 165.1 cm; Wt 68.0 kg
[2025-04-02] MEDS ORDERED: Metoclopramide HCl 5MG / ML 2ML Vial IV ONE (16:50)
[2025-04-02] MEDS ORDERED: Ketorolac Tromethamine 30mg Vial IV ONE (16:50)
[2025-04-02 19:37] VITALS: BP 124/90
[2025-04-02] MEDS ORDERED: Ketorolac Tromethamine 30mg Vial IM ONE (20:00)
[2025-04-02] MEDS ORDERED: Metoclopramide HCl 5MG / ML 2ML Vial IM ONE (20:00)
== END 2025-04-02 20:58 | disposition home or self-care (01) ==
LOC: ER 16:05
DX: R51.9 Headache, unspecified (principal); I10 Essential (primary) hypertension; Z79.899 Other long term (current) drug therapy
CPT/HCPCS: 70450; 96372; 99284-25; J1885; J2765

== ENCOUNTER 2025-04-02 21:23 | Emergency (ER) | payer MEDICARE ==
[~2025-04-02] VITALS: Ht 175.3 cm; Wt 83.9 kg
[2025-04-02 21:34] VITALS: BP 129/90
[2025-04-04] MEDS ORDERED: Clindamycin HC150 MG PO (15:41)
== END 2025-04-03 00:04 | disposition home or self-care (01) ==
LOC: ER 21:23
DX: R45.851 Suicidal ideations (principal); I10 Essential (primary) hypertension; I69.354 Hemiplegia and hemiparesis following cerebral infarction affecting left non-dominant side; I69.328 Other speech and language deficits following cerebral infarction; K74.60 Unspecified cirrhosis of liver; Z79.899 Other long term (current) drug therapy
CPT/HCPCS: 99284

== ENCOUNTER 2025-04-04 11:49 | Emergency (ER) | payer MEDICARE ==
[~2025-04-04] VITALS: Ht 177.8 cm; Wt 83.9 kg
[2025-04-04] MEDS ORDERED: NS 1,000 ML IV SCH (11:55)
[2025-04-04] MEDS ORDERED: Ondansetron HCl 2 MG / ML 2ML Vial IV ONE (12:00)
[2025-04-04] MEDS ORDERED: Morphine Sulfate 4 MG/1 ML Injection IV ONE ×2 (12:00)
[2025-04-04 12:20] LABS: BASOPHILS ABSOLUTE AUTO 0.03 K/mm3 (0.00-0.23); BASOPHILS PERCENT AUTO 0 % (0-2); EOSINOPHILS ABSOLUTE AUTO 0.06 K/mm3 (0.00-0.68); EOSINOPHILS PERCENT AUTO 1 % (0-6); Hematocrit 33.2 % (37.0-53.0); Hemoglobin 10.6 g/dL (13.5-17.5); IMMATURE GRAN ABSOLUTE AUTO 0.05 K/mm3 (0.00-0.10); IMMATURE GRAN PERCENT AUTO 1 % (0-1); LYMPHOCYTES ABSOLUTE AUTO 1.45 K/mm3 (0.84-5.20); LYMPHOCYTES PERCENT AUTO 16 % (21-46); MONOCYTES ABSOLUTE AUTO 0.54 K/mm3 (0.16-1.47); MONOCYTES PERCENT AUTO 6 % (4-13); Mean Corpuscular HGB Conc 31.9 g/dL (31.5-36.5); Mean Corpuscular Volume 94 fL (80-100); NEUTROPHILS ABSOLUTE AUTO 6.98 K/mm3 (1.96-9.15); NEUTROPHILS PERCENT AUTO 77 % (41-73); NRBC ABSOLUTE 0.00 K/mm3 (0.00-0.02); NRBC Auto 0.0 /100 WBC (0.0-0.2); Platelet Count 241 K/mm3 (150-400); RDW Coefficient Variation 15.3 % (11.7-14.2); RDW Standard Deviation 52.7 fL (35.1-46.3)
[2025-04-04 12:57] LABS: Alanine Aminotransfer (ALT/SGP 52.0 U/L (12-78); Albumin, Blood 3.3 g/dL (3.4-5.0); Albumin/Globulin Ratio 1.0 (0.8-1.8); Anion Gap 10.0 mmol/L (3-11); Aspartate Aminotrans (AST/SGOT 56.0 U/L (12-37); Bilirubin, Total 0.7 mg/dL (0.1-1.0); Blood Urea Nitrogen 30.0 mg/dL (8-24); C-REACTIVE PROTEIN, EXT RANGE 0.677 mg/dL (0.000-0.300); CO2, Blood 26.0 mmol/L (21-32); Calcium, Blood 8.4 mg/dL (8.5-10.1); Chloride, Blood 105.0 mmol/L (98-108); Creatinine, Blood 1.38 mg/dL (0.60-1.20); Globulin, Blood 3.4 g/dL (2.2-4.0); Glucose, Blood 121.0 mg/dL (70-99); Magnesium, Blood 2.2 mg/dL (1.6-2.4); Potassium, Blood 3.6 mmol/L (3.5-5.5); Sodium, Blood 137.0 mmol/L (136-145); Total Protein, Blood 6.7 g/dL (6.4-8.2)
[2025-04-04 15:26] LABS: Calcium, Ionized (POC) 1.17 mmol/L (1.10-1.46); Chloride (POC) 107 mmol/L (98-108); Creatinine (POC) 0.7 mg/dL (0.8-1.3); Glucose (ISTAT POC) 103 mg/dL (70-99); Hematocrit (POC) 31.0 % (41.0-53.0); Hemoglobin (POC) 10.5 g/dL (13.5-17.5); Potassium (POC) 3.7 mmol/L (3.5-5.5); Sodium (POC) 142 mmol/L (135-148); Total CO2 (POC) 22 mmol/L (21-32)
[2025-04-04] MEDS ORDERED: Clindamycin HC150 MG PO (15:41)
[2025-04-04 16:12] VITALS: BP 138/94
== END 2025-04-04 16:12 | disposition home or self-care (01) ==
LOC: ER 11:49
PROVIDERS: Student in an Organized Health Care Education/Training Program
DX: S09.90XA Unspecified injury of head, initial encounter (principal); L03.114 Cellulitis of left upper limb; N17.9 Acute kidney failure, unspecified; E86.0 Dehydration; I69.354 Hemiplegia and hemiparesis following cerebral infarction affecting left non-dominant side; I10 Essential (primary) hypertension; K74.60 Unspecified cirrhosis of liver; Z91.81 History of falling; Z79.899 Other long term (current) drug therapy; W18.30XA Fall on same level, unspecified, initial encounter
CPT/HCPCS: 70450; 72125; 73090; 80047; 80053; 83605; 83735; 85014; 85025; 85651; 86140; A9270; J2270; J2405; J7030

== ENCOUNTER 2025-04-04 19:08 | Emergency (ER) | payer MEDICARE ==
[~2025-04-04] VITALS: Ht 180.3 cm; Wt 81.7 kg
[~2025-04-04 19:08] MED LIST changes: +Clindamycin HC150 MG PO
[2025-04-05 11:20] VITALS: BP 123/74
== END 2025-04-05 11:37 | disposition home or self-care (01) ==
LOC: ER 19:08
DX: F10.10 Alcohol abuse, uncomplicated (principal); I69.354 Hemiplegia and hemiparesis following cerebral infarction affecting left non-dominant side; I10 Essential (primary) hypertension; Z59.00 Homelessness unspecified; Z91.81 History of falling; Z79.899 Other long term (current) drug therapy
CPT/HCPCS: 70450; 72125; 73090; 80047; 80053; 83605; 83735; 85014; 85025; 85651; 86140; 87040; 93005; 93010; 96361; 96374; 96375; 97161; 97530; 99285-25; A9270; C1751; J2270; J2405; J7030

== ENCOUNTER 2025-04-07 12:19 | Emergency (ER) | payer MEDICARE ==
[~2025-04-07] VITALS: Ht 180.3 cm; Wt 85.3 kg
[2025-04-07 12:54] VITALS: BP 141/96
== END 2025-04-07 16:17 | disposition home or self-care (01) ==
LOC: ER 12:19
DX: Z76.89 Persons encountering health services in other specified circumstances (principal); I69.954 Hemiplegia and hemiparesis following unspecified cerebrovascular disease affecting left non-dominant side; F10.90 Alcohol use, unspecified, uncomplicated; I10 Essential (primary) hypertension; Z79.899 Other long term (current) drug therapy; Z59.00 Homelessness unspecified
CPT/HCPCS: 82947; 99283

== ENCOUNTER 2025-04-08 12:54 | Emergency (ER) | payer MEDICARE ==
[~2025-04-08] VITALS: Ht 177.8 cm; Wt 85.3 kg
[2025-04-08 13:25] VITALS: BP 116/85
[2025-04-08] MEDS ORDERED: HYDROcodone 5-APAP 325 TAB PO ONE (14:35)
== END 2025-04-08 15:00 | disposition home or self-care (01) ==
LOC: ER 12:54
DX: M54.6 Pain in thoracic spine (principal); W01.0XXA Fall on same level from slipping, tripping and stumbling without subsequent striking against object, initial encounter
CPT/HCPCS: 72070; 99283-25; A9270

== ENCOUNTER 2025-04-10 12:00 | Emergency (ER) | payer OTHER, MEDICARE ==
[~2025-04-10] VITALS: Ht 177.8 cm; Wt 86.2 kg
[2025-04-10 12:40] VITALS: BP 115/76
== END 2025-04-10 13:51 | disposition home or self-care (01) ==
LOC: ER 12:00
DX: M43.8X4 Other specified deforming dorsopathies, thoracic region (principal); W18.30XA Fall on same level, unspecified, initial encounter; Z91.81 History of falling; Z79.899 Other long term (current) drug therapy; I10 Essential (primary) hypertension; Z86.73 Personal history of transient ischemic attack (TIA), and cerebral infarction without residual deficits
CPT/HCPCS: 72070; 99283-25

== ENCOUNTER 2025-04-10 15:49 | Emergency (ER) | payer MEDICARE ==
[~2025-04-10] VITALS: Ht 177.8 cm; Wt 85.3 kg
[2025-04-10 16:26] VITALS: BP 133/101
== END 2025-04-10 17:13 | disposition home or self-care (01) ==
LOC: ER 15:49
DX: Z76.89 Persons encountering health services in other specified circumstances (principal); Z59.82 Transportation insecurity; Z59.48 Other specified lack of adequate food
CPT/HCPCS: 99281